=== PATIENT | female | born 1930 | race Caucasian/White ===

== ENCOUNTER 2016-10-29 05:29 | Observation (INO) ==
[2016-10-29] MEDS ORDERED: ONDANSETRON 4 MG/2 ML VIAL IV ONE (05:30)
[2016-10-29] MEDS ORDERED: LACTATED RINGERS 1,000 ML IV ONE (05:30)
--- NOTE | 2016-10-29 05:35 | Emergency Department Note ---
Fall HPI - General Chief Complaint: Fall Stated Complaint: fall Time Seen by Provider: 10/29/16 05:30 Mode of arrival: ambulatory - History of Present Illness HPI Narrative: 85-year-old female is brought in by her daughter after having fallen at home. She is on Coumadin, she did hit her head, she is complaining of a headache but there's been no nausea vomiting, she does have dementia and thus very limited history is available from the patient. It does appear that she has a dry throat. According to the daughter who is also the campground caretaker she has been fairly weak recently. She does take sulfa medications to prevent chronic urinary tract infections, she is also on Coumadin and takes medications for hypothyroidism. There are no advanced directives, the daughter is not sure what to do at this point should she need intervention. Patient is relatively asymptomatic at this point, the nurses did clean her up so was incontinence of stool and urine. According to family there was no seizure-like activity. - Related Data Home Medications Medication Instructions Recorded Confirmed Furosemide [Lasix] 20 mg PO DAILY 10/29/16 10/29/16 Levothyroxine [Synthroid] 125 mcg PO DAILY 10/29/16 10/29/16 Sulfamethoxazole-Tmp Susp 10/29/16 Warfarin [Coumadin] 3 mg PO DAILY 10/29/16 10/29/16 Previous Rx's Medication Instructions Recorded Ciprofloxacin [Cipro] 250 mg PO BID #14 tablet 10/29/16 Allergies Allergy/AdvReac Type Severity Reaction Status Date / Time No Known Drug Allergies Allergy Verified 02/29/16 10:59 Review of Systems Limitations: ROS unobtainable due to patients medical condition Fall PMH - Past Medical History Medical history: Reports: atrial fibrillation, CHF, dementia, thyroid disease, other (recent history of severe pneumonia) Surgical history ED: Reports: non-contributory - Social History smoking status: Never smoker Alcohol use: Reports: None Drug use: Reports: none Physical Exam - General Limitations: altered mental status, physical limitation General appearance: alert, in no apparent distress - Head Head exam: other (3 cm area of bruising and swelling to rt forehead) - Eye Eye exam: Present: normal appearance, PERRL, EOMI - ENT ENT exam: normal exam, normal oropharynx - Neck Neck exam: Present: normal inspection, full ROM - Chest Chest inspection: Present: normal inspection, symmetric chest wall rise - Respiratory Respiratory exam: Present: normal lung sounds bilaterally. Absent: respiratory distress, wheezes - Cardiovascular Cardiovascular exam: Present: regular rate, normal rhythm - Abdominal Exam Abdominal exam: Present: soft, normal bowel sounds. Absent: distention, tenderness, guarding - Extremities Exam Extremities exam: Present: normal inspection, full ROM. Absent: tenderness, pedal edema - Back Exam Back exam: Present: normal inspection, full ROM. Absent: CVA tenderness (R), CVA tenderness (L), vertebral tenderness - Neurological Exam Neurological exam: Present: alert. Absent: motor sensory deficit - Skin Skin exam: Present: warm, dry, intact, rash, other (she has a groin rash and rash and the diaper area.) Course - Reevaluation(s) Reevaluation #1: CT scan of the head and neck showed a lot of atrophy and degenerative changes respectively, no acute findings. She does have a contusion to the right forehead with soft tissue swelling here. It turns out her vitamin B-12 levels are actually low, she does have macrocytosis on her CBC, the urine so far on the dip looks very contaminated. Final impression is #1 fall without acute orthopedic injury #2 contusion right forehead #3 dementia, end-stage number 4, urinary tract infection clinically. Plan is Rocephin, outpatient antibiotics, follow up with primary care in 2 weeks for recheck of the urine, 1 month for follow-up vitamin B12 injection. Vital Signs Temperature 98.2 F 10/29/16 05:30 Pulse Rate 82 10/29/16 05:30 Respiratory Rate 15 10/29/16 05:30 Blood Pressure 121/66 10/29/16 05:30 Pulse Oximetry (%) 98 10/29/16 05:30 Temperature 98.2 F 10/29/16 05:30 Pulse Rate 75 10/29/16 07:25 Respiratory Rate 15 10/29/16 05:30 Blood Pressure 134/73 10/29/16 07:25 Pulse Oximetry (%) 96 10/29/16 07:25 Fall - MDM Narrative Medical decision making narrative: Final diagnosis is urinary tract infection, #2 generalized weaknesssecondary to #1 and end-stage dementia. #3 vitamin B-12 deficiency. - Lab Data Result diagrams: 10/29/16 05:41 10/29/16 05:41 Lab Results 10/29/16 10/29/16 10/29/16 Range/Units 05:41 05:41 05:41 WBC 6.0 (4.5-11.0) K/mcL RBC 3.10 L (4.00-5.20) M/mcL Hgb 12.2 (12.0-15.0) g/dL Hct 36.0 (36.0-48.0) % MCV 116.4 H (80.0-100.0) fL MCH 39.4 H (26.0-34.0) pg MCHC 33.9 (31.0-36.0) g/dL RDW 15.4 H (11.5-14.5) % Plt Count 240 (140-440) K/mcL MPV 7.8 (7.4-10.4) fL Gran % 74.5 (38.0-78.0) % Lymph % (Auto) 10.7 L (15.5-49.0) % [place] % (Auto) 9.4 (1.0-12.0) % Eos % (Auto) 5.1 (0.0-7.0) % Baso % (Auto) 0.3 (0.0-2.0) % Gran # 4.5 (1.8-8.0) K/mcL Lymph # (Auto) 0.6 L (1.5-4.8) K/mcL [place] # (Auto) 0.6 (0.1-0.9) K/mcL Eos # (Auto) 0.3 (0.0-0.7) K/mcL Baso # (Auto) 0 (0.0-0.3) K/mcL PT 14.5 (11.9-14.5) sec INR 1.1 (0.9-1.1) Sodium 137 (133-145) mmol/L Potassium 4.2 (3.3-5.1) mmol/L Chloride 102 (96-108) mmol/L Carbon Dioxide 23 (22-30) mmol/L Anion Gap 12.0 (8-16) BUN 17 (8-23) mg/dl Creatinine 1.3 H (0.6-1.1) mg/dl GFR Calculation 37 Glucose 111 H (70-105) mg/dL Calcium 8.9 (8.6-10.4) mg/dl Total Bilirubin 0.4 (0.0-1.0) mg/dL AST 29 (0-37) U/l ALT 12 (0-40) U/l Alkaline Phosphatase 68 (39-117) U/L Total Protein 6.9 (5.9-8.4) gm/dL Albumin 3.7 (3.2-5.2) gm/dL Globulin 3.2 (2.2-3.7) gm/dL Albumin/Globulin Ratio 1.2 (1.0-2.3) Vitamin B12 (243-894) pg/ml 10/29/16 Range/Units 05:41 WBC (4.5-11.0) K/mcL RBC (4.00-5.20) M/mcL Hgb (12.0-15.0) g/dL Hct (36.0-48.0) % MCV (80.0-100.0) fL MCH (26.0-34.0) pg MCHC (31.0-36.0) g/dL RDW (11.5-14.5) % Plt Count (140-440) K/mcL MPV (7.4-10.4) fL Gran % (38.0-78.0) % Lymph % (Auto) (15.5-49.0) % [place] % (Auto) (1.0-12.0) % Eos % (Auto) (0.0-7.0) % Baso % (Auto) (0.0-2.0) % Gran # (1.8-8.0) K/mcL Lymph # (Auto) (1.5-4.8) K/mcL [place] # (Auto) (0.1-0.9) K/mcL Eos # (Auto) (0.0-0.7) K/mcL Baso # (Auto) (0.0-0.3) K/mcL PT (11.9-14.5) sec INR (0.9-1.1) Sodium (133-145) mmol/L Potassium (3.3-5.1) mmol/L Chloride (96-108) mmol/L Carbon Dioxide (22-30) mmol/L Anion Gap (8-16) BUN (8-23) mg/dl Creatinine (0.6-1.1) mg/dl GFR Calculation Glucose (70-105) mg/dL Calcium (8.6-10.4) mg/dl Total Bilirubin (0.0-1.0) mg/dL AST (0-37) U/l ALT (0-40) U/l Alkaline Phosphatase (39-117) U/L Total Protein (5.9-8.4) gm/dL Albumin (3.2-5.2) gm/dL Globulin (2.2-3.7) gm/dL Albumin/Globulin Ratio (1.0-2.3) Vitamin B12 54.77 L (243-894) pg/ml Disposition Pt seen by DOOR HANGER/PA only: No Clinical Impression: UTI (urinary tract infection) Disposition: Home, Self-Care Condition: Fair Prescriptions: Ciprofloxacin [Cipro] 250 mg PO BID #14 tablet Referrals: Darin Lazo MD [Primary Care Provider] -
[2016-10-29 06:33] LABS: Basophils # (Auto) 0 K/mcL (0.0-0.3); Basophils % (Auto) 0.3 % (0.0-2.0); Eosinophils # (Auto) 0.3 K/mcL (0.0-0.7); Eosinophils % (Auto) 5.1 % (0.0-7.0); Granulocytes % (Auto) 74.5 % (38.0-78.0); Lymphocytes # (Auto) 0.6 K/mcL (1.5-4.8); Lymphocytes % (Auto) 10.7 % (15.5-49.0); Mean Cell Volume 116.4 fL (80.0-100.0); Mean Corpuscular HGB Conc 33.9 g/dL (31.0-36.0); Mean Corpuscular Hemoglobin 39.4 pg (26.0-34.0); Monocytes # (Auto) 0.6 K/mcL (0.1-0.9); Monocytes % (Auto) 9.4 % (1.0-12.0); Platelet Count 240 K/mcL (140-440); Red Cell Distribution Width 15.4 % (11.5-14.5)
[2016-10-29 06:54] LABS: ALT/SGPT 12 U/l (0-40); Albumin 3.7 gm/dL (3.2-5.2); Albumin/Globulin Ratio 1.2 (1.0-2.3); Alkaline Phosphatase 68 U/L (39-117); Blood Urea Nitrogen 17 mg/dl (8-23)
[2016-10-29] MEDS ORDERED: cefTRIAXone 1 GM in DEXTROSE 5% IN WATER 50 ML IV ONE (08:09)
[2016-10-29 08:10] LABS: Vitamin B12 54.77 pg/ml (243-894)
--- NOTE | 2016-10-29 08:14 | Cat Scan Report ---
History: Fell with head injury, increased weakness and history of dementia Findings: The brain was imaged without contrast at 2.5 mm intervals. There is a small to intermediate sized scalp hematoma lateral to the right frontal bone. No skull fracture is present. There is no intracranial hemorrhage or cerebral edema. There is moderate atrophy, predominantly involving the frontal and temporal lobes. An arachnoid cyst is present anteriorly in the left middle cranial fossa. Measures 2.1 x 2.6 cm. Mild white matter ischemic or degenerative changes are seen in the frontal lobes bilaterally. The ventricles are relatively large but proportionate to the atrophy. The atrophy and ventricular dilatation have become worse since 03/16/11. Impression: Scalp hematoma over the right frontal bone Cerebral atrophy with associated ventricular dilatation No acute intracranial lesion Interpreted and Authenticated by: Juan Manuel Hernandez 10/29/16
--- NOTE | 2016-10-29 08:21 | Cat Scan Report ---
History: Fell, neck injury and increasing weakness Findings: The neck was imaged from the skull base through the thoracic inlet. Sagittal and coronal reformats were created. The cervico-occipital junction is normal. There is moderate arthritis at the articulation of the odontoid and anterior ring of C1. The head and neck are tilted to the left. There is no fracture or spondylolisthesis. Moderate disc space narrowing is present at C4-5 and C6-7 with milder narrowing at C2-3, C3-4, C5-6 and C7-T1. There are large spurs along the posterior border of the C6-7 disc space. There is also spurring of the uncinate processes bilaterally at multiple levels resulting in moderate stenosis of the foramina bilaterally at C4-5 and left-sided C6-7. There is no paraspinal hematoma or mass. Impression: No fracture. 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 Johnson was called with results Interpreted and Authenticated by: Juan Manuel Hernandez 10/29/16
--- NOTE | 2016-10-29 08:23 | XRay Report ---
HISTORY: Reason for Exam:FALL FINDINGS: There are linear scars at left costophrenic sulcus. The lungs are otherwise clear and well expanded. The heart size, mediastinum, pedro and pulmonary vasculature are normal. Distal end of the left clavicle is deformed. This may be from an old fracture. No acute fracture is seen. There has been little change since a prior chest CT done on 02/29/16. IMPRESSION: Scarring at the left costophrenic sulcus. The chest is otherwise normal. Interpreted and Authenticated by: Juan Manuel Hernandez 10/29/16
[2016-10-29] MEDS ORDERED: CYANOCOBALAMIN 1,000 MCG/ML VIAL IM ONE (08:46)
[2016-10-29 09:01] LABS: Appearance,Urine CLOUDY; Bacteria,Urine MANY /hpf (0); Bilirubin,Urine NEG (NEG); Color,Urine AMBER; Glucose,Urine (UA) NEGATIVE (NEG); Leukocyte Esterase,Urine 25 /uL (NEG); Mucus,Urine MANY /hpf (0); Nitrate,Urine NEG (NEG); Protein,Urine 100 mg/dL (NEG); Specific Gravity,Urine 1.021 (1.000-1.035); Urine Amorphous Crystals FEW /hpf (0); Urine Blood 0.2 mg/dL (<0.03); Urine RBC 63 /hpf (0-1); Urine Squamous Epithelial Cell 2 /hpf (0-4); Urine Transitional Epi Cells 1 /hpf (0-2); Urine WBC > 182 /hpf (0-4)
[2016-10-29] MEDS: LACTATED RINGERS 1,000 ML IV SCH ×2 (10:19→12:42)
--- NOTE | 2016-10-29 11:24 | Emergency Department Note ---
General Adult HPI - General Chief complaint: Fall Stated complaint: fall Time Seen by Provider: 10/29/16 05:30 Source: patient Mode of arrival: ambulatory Limitations: altered mental status, physical limitation - Related Data Home Medications Medication Instructions Recorded Confirmed Furosemide [Lasix] 20 mg PO DAILY 10/29/16 10/29/16 Levothyroxine [Synthroid] 125 mcg PO DAILY 10/29/16 10/29/16 Sulfamethoxazole-Tmp Susp 10/29/16 Warfarin [Coumadin] 3 mg PO DAILY 10/29/16 10/29/16 Previous Rx's Medication Instructions Recorded Ciprofloxacin [Cipro] 250 mg PO BID #14 tablet 10/29/16 Allergies Allergy/AdvReac Type Severity Reaction Status Date / Time No Known Drug Allergies Allergy Verified 02/29/16 10:59 Past Medical History - Past Medical History Medical history: Reports: atrial fibrillation, CHF, dementia, thyroid disease, other (recent history of severe pneumonia) Surgical history ED: Reports: non-contributory - Social History Alcohol use: Reports: None Drug use: Reports: none Physical Exam - General Limitations: altered mental status, physical limitation General appearance: alert, in no apparent distress Course Vital Signs Temperature 98.2 F 10/29/16 05:30 Pulse Rate 82 10/29/16 05:30 Respiratory Rate 15 10/29/16 05:30 Blood Pressure 121/66 10/29/16 05:30 Pulse Oximetry (%) 98 10/29/16 05:30 Temperature 98.2 F 10/29/16 05:30 Pulse Rate 72 10/29/16 09:32 Respiratory Rate 15 10/29/16 05:30 Blood Pressure 129/69 10/29/16 11:02 Pulse Oximetry (%) 97 10/29/16 09:32 Medical Decision Making - [facility] Narrative Medical decision making narrative: This patient had a urinary tract infection and was too weak to walk. Discussed case with the hospitalist Dr. Hoang and the patient will be admitted to the hospital observation. - Lab Data Lab results reviewed: Yes I reviewed the patient's lab results. Result diagrams: 10/29/16 05:41 10/29/16 05:41 Lab Results 10/29/16 10/29/16 10/29/16 Range/Units 05:41 05:41 05:41 WBC 6.0 (4.5-11.0) K/mcL RBC 3.10 L (4.00-5.20) M/mcL Hgb 12.2 (12.0-15.0) g/dL Hct 36.0 (36.0-48.0) % MCV 116.4 H (80.0-100.0) fL MCH 39.4 H (26.0-34.0) pg MCHC 33.9 (31.0-36.0) g/dL RDW 15.4 H (11.5-14.5) % Plt Count 240 (140-440) K/mcL MPV 7.8 (7.4-10.4) fL Gran % 74.5 (38.0-78.0) % Lymph % (Auto) 10.7 L (15.5-49.0) % [place] % (Auto) 9.4 (1.0-12.0) % Eos % (Auto) 5.1 (0.0-7.0) % Baso % (Auto) 0.3 (0.0-2.0) % Gran # 4.5 (1.8-8.0) K/mcL Lymph # (Auto) 0.6 L (1.5-4.8) K/mcL [place] # (Auto) 0.6 (0.1-0.9) K/mcL Eos # (Auto) 0.3 (0.0-0.7) K/mcL Baso # (Auto) 0 (0.0-0.3) K/mcL PT 14.5 (11.9-14.5) sec INR 1.1 (0.9-1.1) Sodium 137 (133-145) mmol/L Potassium 4.2 (3.3-5.1) mmol/L Chloride 102 (96-108) mmol/L Carbon Dioxide 23 (22-30) mmol/L Anion Gap 12.0 (8-16) BUN 17 (8-23) mg/dl Creatinine 1.3 H (0.6-1.1) mg/dl GFR Calculation 37 Glucose 111 H (70-105) mg/dL Calcium 8.9 (8.6-10.4) mg/dl Total Bilirubin 0.4 (0.0-1.0) mg/dL AST 29 (0-37) U/l ALT 12 (0-40) U/l Alkaline Phosphatase 68 (39-117) U/L Total Protein 6.9 (5.9-8.4) gm/dL Albumin 3.7 (3.2-5.2) gm/dL Globulin 3.2 (2.2-3.7) gm/dL Albumin/Globulin Ratio 1.2 (1.0-2.3) Vitamin B12 (243-894) pg/ml Urine Color Urine Appearance Urine pH (5.0-9.0) Ur Specific [place] (1.000-1.035) Urine Protein (NEG) mg/dL Urine Glucose (UA) (NEG) mg/dL Urine Ketones (NEG) mg/dL Urine Occult Blood (<0.03) mg/dL Urine Nitrate (NEG) Urine Bilirubin (NEG) mg/dL Urine Urobilinogen (NEG) mg/dL Ur Leukocyte Esterase (NEG) /uL Urine RBC (0-1) /hpf Urine WBC (0-4) /hpf Ur Squamous Epith Cells (0-4) /hpf Ur Transition Epith Cell (0-2) /hpf Amorphous Crystals (0) /hpf Urine Bacteria (0) /hpf Urine Mucus (0) /hpf Ur Culture Indicated? 10/29/16 10/29/16 Range/Units 05:41 08:05 WBC (4.5-11.0) K/mcL RBC (4.00-5.20) M/mcL Hgb (12.0-15.0) g/dL Hct (36.0-48.0) % MCV (80.0-100.0) fL MCH (26.0-34.0) pg MCHC (31.0-36.0) g/dL RDW (11.5-14.5) % Plt Count (140-440) K/mcL MPV (7.4-10.4) fL Gran % (38.0-78.0) % Lymph % (Auto) (15.5-49.0) % [place] % (Auto) (1.0-12.0) % Eos % (Auto) (0.0-7.0) % Baso % (Auto) (0.0-2.0) % Gran # (1.8-8.0) K/mcL Lymph # (Auto) (1.5-4.8) K/mcL [place] # (Auto) (0.1-0.9) K/mcL Eos # (Auto) (0.0-0.7) K/mcL Baso # (Auto) (0.0-0.3) K/mcL PT (11.9-14.5) sec INR (0.9-1.1) Sodium (133-145) mmol/L Potassium (3.3-5.1) mmol/L Chloride (96-108) mmol/L Carbon Dioxide (22-30) mmol/L Anion Gap (8-16) BUN (8-23) mg/dl Creatinine (0.6-1.1) mg/dl GFR Calculation Glucose (70-105) mg/dL Calcium (8.6-10.4) mg/dl Total Bilirubin (0.0-1.0) mg/dL AST (0-37) U/l ALT (0-40) U/l Alkaline Phosphatase (39-117) U/L Total Protein (5.9-8.4) gm/dL Albumin (3.2-5.2) gm/dL Globulin (2.2-3.7) gm/dL Albumin/Globulin Ratio (1.0-2.3) Vitamin B12 54.77 L (243-894) pg/ml Urine Color [place] Urine Appearance Cloudy Urine pH 7.0 (5.0-9.0) Ur Specific [place] 1.021 (1.000-1.035) Urine Protein 100 A (NEG) mg/dL Urine Glucose (UA) Negative (NEG) mg/dL Urine Ketones 5/tr A (NEG) mg/dL Urine Occult Blood 0.2 A (<0.03) mg/dL Urine Nitrate Neg (NEG) Urine Bilirubin Neg (NEG) mg/dL Urine Urobilinogen 2.0 A (NEG) mg/dL Ur Leukocyte Esterase 25 A (NEG) /uL Urine RBC 63 H (0-1) /hpf Urine WBC > 182 H (0-4) /hpf Ur Squamous Epith Cells 2 (0-4) /hpf Ur Transition Epith Cell 1 (0-2) /hpf Amorphous Crystals Few A (0) /hpf Urine Bacteria Many A (0) /hpf Urine Mucus Many A (0) /hpf Ur Culture Indicated? Yes - Radiology Data Radiology results reviewed: Yes I reviewed the patient's radiology results. Disposition Pt seen by POWER PLANT OPERATOR/PA only: No Clinical Impression: UTI (urinary tract infection) Disposition: Xfer As Outpt/Obs ([facility]) Condition: Fair Prescriptions: Ciprofloxacin [Cipro] 250 mg PO BID #14 tablet Referrals: Darin Lazo MD [Primary Care Provider] - Time of Disposition: 11:24
[2016-10-29] MEDS ORDERED: MAG HYDROX/AL HYDROX/SIMETH 30 ML ORAL.SUSP PO PRN (11:55)
[2016-10-29] MEDS ORDERED: ACETAMINOPHEN 325 MG TABLET PO PRN (11:55)
[2016-10-29] MEDS ORDERED: MAGNESIUM HYDROXIDE 30 ML ORAL.SUSP PO PRN (11:55)
[2016-10-29] MEDS ORDERED: NALOXONE HCL 0.4 MG/ML VIAL IV PRN (11:55)
[2016-10-29] MEDS ORDERED: IPRATROPIUM/ALBUTEROL 3 ML AMPUL.NEB NEB PRN (11:55)
[2016-10-29] MEDS ORDERED: traZODone HCL 50 MG TABLET PO PRN (11:55)
[2016-10-29] MEDS ORDERED: oxyCODONE HCL 5 MG TABLET PO PRN (11:55)
[2016-10-29] MEDS ORDERED: ONDANSETRON 4 MG/2 ML VIAL IV PRN (11:55)
[2016-10-29] MEDS: 0.9 % SODIUM CHLORIDE 1,000 ML IV SCH (12:41)
--- NOTE | 2016-10-29 13:21 | Internal Med History&Physical ---
Medical - H&P: HPI Patient information: Note initiated : 10/29/16 at 1:07 pm Service Date, if different from initiated Date: [] Patient: Nelda Martinez 85 y/o F admitted on 10/29/16 for fall. Chief Complaint: [] History of present illness: Ms. Martinez is a 85 year old female with history of dementia, atrial fibrillation , transient, COPD, arthritis, history of heart failure, who presented to the ER with history of fall this morning. The patient has been having weakness going on for the last 2 days. The patient this morning, her bed and fell down and there is questionable history of head trauma. The patient has dementia and much of the history was from the chart review. The daughter was not present at bedside. However, she was there in the ED, provide history. In the emergency room, the patient had a head CT, which was reported as negative except contusion on the right temporofemoral region, chest x-ray was negative, the patient's lab was unremarkable, no white count, normal kidney functions. Her urinalysis was abnormal, and she had foul-smelling urine. According to the notes. The patient was given 1 g of Rocephin. Urine cultures were sent and the patient was admitted to the hospital as she was too weak to be discharged back home. ROS unobtainable: due to mental status Medical - H&P: PMH Medical history: Medical History (Last Updated 10/29/16 @ 08:52 by Rory Johnson MD) Asthma exacerbation (Acute) RML pneumonia (Acute) Community acquired bacterial pneumonia (Acute) In addition see HPI Surgical history: TKR Cataract surgery (as per chart review) Family history: reviewed and not pertinent Social history: lives with daughter at home. Medical - H&P: Meds Home Medications Medication Instructions Recorded Confirmed Type Ciprofloxacin [Cipro] 250 mg PO BID #14 tablet 10/29/16 Rx Furosemide [Lasix] 20 mg PO DAILY 10/29/16 10/29/16 History Levothyroxine [Synthroid] 125 mcg PO DAILY 10/29/16 10/29/16 History Sulfamethoxazole-Tmp Susp 10/29/16 History Warfarin [Coumadin] 3 mg PO DAILY 10/29/16 10/29/16 History Allergies Allergy/AdvReac Type Severity Reaction Status Date / Time No Known Drug Allergies Allergy Verified 02/29/16 10:59 Medical - H&P: Exam - Constitutional Vitals: Temp Pulse Resp BP Pulse Ox 98.2 F 72 15 148/102 97 10/29/16 11:38 10/29/16 11:38 10/29/16 11:38 10/29/16 11:38 10/29/16 11:38 Exam: GENERAL: The patient is a well-developed, well-nourished in no apparent distress. Is alert and oriented x1. VITAL SIGNS: Reviewed and as noted elsewhere. HEENT: Head is normocephalic and atraumatic. Extraocular muscles are intact. Pupils are equal, round, and reactive to light. Nares appeared normal. Mouth appears any without lesions. Mucous membranes are dry NECK: Normal to inspection, Supple, No lymphadenopathy or thyromegaly. LUNGS: Air entry equal on both sides, no wheezing, crackles or rhonchi noted. No accessory muscles of respiration HEART: Regular rate and rhythm normal, S1 and S2 heard, no Gallop, S3 or Rub Noted, No Gross murmur heard. ABDOMEN: Soft, nontender, and nondistended. Positive bowel sounds. No hepatosplenomegaly was noted. EXTREMITIES: No cyanosis, clubbing, rash, lesions or edema. NEUROLOGIC: Cranial nerves II through XII are grossly intact. Motor and Sensory System Grossly Intact PSYCHIATRIC: Normal affect, Normal Mood. Appropriate Behavior. SKIN: No ulceration or wounds noted, No jaundice, No rash noted. Medical - H&P: Reslt - Labs CBC & Chem 7: 10/29/16 05:41 10/29/16 05:41 Medical - H&P: A/P - Narrative A/P Narrative: A/P urinary tract infection-. This is likely responsible for patient's weakness and fall, treated with IV fluids and IV Rocephin no evidence of sepsis. Blood pressure is stable. Contusion-conservative management for now. Head CT is negative. Atrial fibrillation-heart rate is well controlled, patient's rate was regular on exam. INR is subtherapeutic at 1.1. According to the last discharge summary , there was some concern with regards to PCP wanting the INR to be around 1.3. I will let pharmacy dose the Coumadin for now. dementia-high risk of falls, fall precaution. vitamin B12 deficiency-noted on the labs. IM vitamin B12 supplement given, will give injections every day for 7 days and then switch to oral. COPD not on any meds when necessary, D.O. nebs for now. DVT prophylaxis-heparin subcutaneous given. INR is subtherapeutic. generalized weakness-due to infection, treat the underlying cause, physical therapy and occupational therapy for now. If the patient does not turn around quickly, may need SNIF placement. Full code Diet, regular, ST eval.
[2016-10-29] MEDS: 0.9 % SODIUM CHLORIDE 10 ML SYRINGE IV SCH ×2 (13:48→20:10)
[2016-10-29] MEDS ORDERED: WARFARIN 5 MG TABLET PO ONE (14:00)
[2016-10-29] MEDS: HEPARIN 5,000 UNIT/ML VIAL SQ SCH (20:10)
[2016-10-30] MEDS: 0.9 % SODIUM CHLORIDE 1,000 ML IV SCH ×2 (00:40→11:57)
[2016-10-30] MEDS: 0.9 % SODIUM CHLORIDE 10 ML SYRINGE IV SCH ×3 (04:43→23:23)
[2016-10-30 06:08] LABS: Basophils # (Auto) 0 K/mcL (0.0-0.3); Basophils % (Auto) 0.4 % (0.0-2.0); Eosinophils # (Auto) 0.4 K/mcL (0.0-0.7); Eosinophils % (Auto) 8.8 % (0.0-7.0); Lymphocytes # (Auto) 0.9 K/mcL (1.5-4.8); Lymphocytes % (Auto) 20.2 % (15.5-49.0); Mean Cell Volume 117.3 fL (80.0-100.0); Mean Corpuscular HGB Conc 33.3 g/dL (31.0-36.0); Mean Corpuscular Hemoglobin 39.1 pg (26.0-34.0); Monocytes # (Auto) 0.6 K/mcL (0.1-0.9); Monocytes % (Auto) 12.6 % (1.0-12.0); Platelet Count 209 K/mcL (140-440); RBC 2.85 M/mcL (4.00-5.20); Red Cell Distribution Width 15.7 % (11.5-14.5)
[2016-10-30 06:39] LABS: ALT/SGPT 11 U/l (0-40); Albumin 3.1 gm/dL (3.2-5.2); Albumin/Globulin Ratio 1.2 (1.0-2.3); Alkaline Phosphatase 60 U/L (39-117); Bilirubin,Direct < 0.2 mg/dL (0.0-0.3); Blood Urea Nitrogen 11 mg/dl (8-23); Gamma Glutamyl Transpeptidase 10 U/L (5-36); Uric Acid 4.6 mg/dL (2.5-8.0)
[2016-10-30] MEDS: LEVOTHYROXINE 125 MCG TABLET PO SCH (08:35)
[2016-10-30] MEDS: FUROSEMIDE 20 MG TABLET PO SCH (08:35)
[2016-10-30] MEDS: MULTIVIT,THER IRON,CA,FA & MIN 1 TABLET PO SCH (08:35)
[2016-10-30] MEDS: CYANOCOBALAMIN 1,000 MCG/ML VIAL IM SCH (08:36)
[2016-10-30] MEDS: HEPARIN 5,000 UNIT/ML VIAL SQ SCH ×2 (08:36→23:05)
[2016-10-30] MEDS: FOLIC ACID 1 MG TABLET PO SCH ×2 (08:37→16:27)
[2016-10-30] MEDS: cefTRIAXone 1 GM in DEXTROSE 5% IN WATER 50 ML IV SCH (08:42)
--- NOTE | 2016-10-30 12:17 | Internal Med Progress Note ---
Medical - PN: Subj Patient information: Note initiated : 10/30/16 at 12:14 pm Service Date, if different from initiated Date: [] Patient: Nelda Martinez 85 y/o F admitted on 10/29/16 for Fall/UTI, Contusion. Chief Complaint: [] Interval history: Ms. Martinez is a 85 year old female with history of dementia, atrial fibrillation , transient, COPD, arthritis, history of heart failure, who presented to the ER with history of fall this morning. The patient has been having weakness going on for the last 2 days. The patient this morning, her bed and fell down and there is questionable history of head trauma. The patient has dementia and much of the history was from the chart review. The daughter was not present at bedside. However, she was there in the ED, provide history. In the emergency room, the patient had a head CT, which was reported as negative except contusion on the right temporofemoral region, chest x-ray was negative, the patient's lab was unremarkable, no white count, normal kidney functions. Her urinalysis was abnormal, and she had foul-smelling urine. According to the notes. The patient was given 1 g of Rocephin. Urine cultures were sent and the patient was admitted to the hospital as she was too weak to be discharged back home. 10/30: patient seen and examined. No acute overnight events. Daughter was at bedside today. DNR form signed by [facility]. The patient's plan is to be discharged to [facility] and then home. The patient denies any acute complaints. However, the patient has dementia and is not very verbal. Labs reviewed, unremarkable. The patient complained about left knee pain and left hip pain. X -rays for same will be ordered given the recent history of fall. Pertinent ROS: says no to all complaints. - Constitutional Vitals: Vital Signs Temp Pulse Resp BP Pulse Ox 97.5 F 74 20 139/75 92 10/30/16 11:51 10/30/16 07:43 10/30/16 11:51 10/30/16 11:51 10/30/16 11:51 Period Temp Pulse Resp BP Sys/Pires Pulse Ox Last 24 Hr 97.5 F-98.8 F 73-76 20-24 95-139/64-77 92-95 Intake and Output 10/29/16 10/30/1610/30/17 21:59 05:59 13:59 Intake Total 1270 / 1270 1200 / 1200 Output Total 2 / 2 2 / 2 Balance -2 / -2 1268 / 1268 1200 / 1200 Weight 192 lb Intake & Output: Intake & Output 10/29/16 10/30/16 10/30/16 21:59 05:59 13:59 Intake Total 1270 / 1270 1200 / 1200 Output Total 2 / 2 2 / 2 Balance -2 / -2 1268 / 1268 1200 / 1200 Weight 192 lb Intake: IV 1000 / 1000 1000 / 1000 Sodium Chloride 0.9% 1, 1000 / 1000 1000 / 1000 000 ml @ 84 mls/hr IV . [id number] DAVID Rx#:[id number] Oral 270 / 270 200 / 200 Output: # of times incontinent of 2 / 2 2 / 2 urine Other: # Voids 1 # Bowel Movements 0 Exam: Constitutional; Afebrile, cooperative, awake, not in distress. Eyes- No icterus, , No periorbital swelling Ears- Ext ear normal, hearing normal to conversation. Neck- Midline trachea, supple Respiratory system: Air Entry equal on both sides, No crackles or wheezing, no rhonchi. CVS- Rate rhythm regular, S1,S2 heard, no gallop, no rub. 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 grabbing at the bedsheet. Medical - PN: Obj Da - Labs CBC & Chem 7: 10/30/16 04:31 10/30/16 04:31 Labs: Abnormal Lab Results 10/30/16 10/30/16 10/30/16 04:31 04:31 04:31 WBC RBC Hgb Hct MCV MCH RDW Boyd % (Auto) Eos % (Auto) Lymph # (Auto) PT 14.9 H Chloride 109 H Carbon Dioxide 21 L Calcium 8.5 L Total Protein 5.7 L Albumin 3.1 L TSH 7.30 H 10/30/16 04:31 WBC 4.4 L RBC 2.85 L Hgb 11.1 L Hct 33.5 L MCV 117.3 H MCH 39.1 H RDW 15.7 H Boyd % (Auto) 12.6 H Eos % (Auto) 8.8 H Lymph # (Auto) 0.9 L PT Chloride Carbon Dioxide Calcium Total Protein Albumin TSH Meds: Medications Acetaminophen (Tylenol) 650 mg PO Q6HP PRN PRN Reason: PAIN/FEVER > 101 Al Hydrox/Mg Hydrox/Simethicone (Maalox) 30 ml PO Q6HP PRN PRN Reason: Dyspepsia Albuterol/Ipratropium (Duoneb) 3 ml NEB Q6HRT PRN PRN Reason: Shortness Of Breath Or Wheezing Cyanocobalamin (Vitamin B12) 1,000 mcg IM DAILY [facility] Stop: 11/05/16 09:01 Last Admin: 10/30/16 08:36 Dose: 1,000 mcg Folic Acid (Folic Acid) 1 mg PO DAILY [facility] Last Admin: 10/30/16 08:37 Dose: 1 mg Furosemide (Lasix) 20 mg PO DAILY [facility] Last Admin: 10/30/16 08:35 Dose: 20 mg Heparin Sodium (Porcine) (Heparin) 5,000 unit SQ Q12 [facility] Last Admin: 10/30/16 08:36 Dose: 5,000 unit Ceftriaxone Sodium 1 gm/ (Dextrose) 50 mls @ 100 mls/hr IV Q24H [facility] Last Admin: 10/30/16 08:42 Dose: 100 mls/hr Sodium Chloride (Sodium Chloride 0.9%) 1,000 mls @ 84 mls/hr IV .[id number] [facility] Last Admin: 10/30/16 11:57 Dose: 84 mls/hr Iron Carb/Multivit/[place]/Folic Acid (Multivitamin W/Minerals) 1 tab PO DAILY [facility] Last Admin: 10/30/16 08:35 Dose: 1 tab Levothyroxine Sodium (Synthroid) 125 mcg PO QAMAC [facility] Last Admin: 10/30/16 08:35 Dose: 125 mcg Magnesium Hydroxide (Milk Of Magnesia) 30 ml PO DAILYP PRN PRN Reason: Constipation Naloxone HCl (Narcan) 0.1 mg IV Q2MIN PRN PRN Reason: Opiate Reversal Ondansetron HCl (Zofran) 4 mg IV Q6HP PRN PRN Reason: Nausea And Vomiting Oxycodone HCl (Roxicodone) 5 mg PO Q4HP PRN PRN Reason: Pain Sodium Chloride (Saline Flush) 10 ml IV Q8 [facility] Last Admin: 10/30/16 04:43 Dose: Not Given Trazodone HCl (Desyrel) 25 mg PO HSP PRN PRN Reason: Insomnia Warfarin Sodium (Coumadin Per Pharmacy) 1 order PO UD DAVID Warfarin Sodium (Coumadin) 5 mg PO ONCE@1400 ONE Stop: 10/30/16 14:01 Medical - PN: A/P - Time Spent With Patient Total time spent is greater than 50% in coordination of care (as documented) at patient's floor/unit and/or counseling patient: - Narrative A/P Narrative: A/P Narrative: A/P urinary tract infection-. This is likely responsible for patient's weakness and fall, treated with IV fluids and IV Rocephin no evidence of sepsis. Blood pressure is stable. Contusion-conservative management for now. Head CT is negative. neurochecks. Hip pain/ knee pain: Get X ray, given h/o fall. Atrial fibrillation-heart rate is well controlled, patient's rate was regular on exam. INR is subtherapeutic at 1.1. According to the last discharge summary , there was some concern with regards to PCP wanting the INR to be around 1.3. I will let pharmacy dose the Coumadin for now. dementia-high risk of falls, fall precaution. vitamin B12 deficiency-noted on the labs. IM vitamin B12 supplement given, will give injections every day while here and can continue at [place], switch to oral at d/c COPD not on any meds when necessary, prn duonebs nebs for now. DVT prophylaxis-heparin subcutaneous given. INR is subtherapeutic. generalized weakness-due to infection, treat the underlying cause, physical therapy and occupational therapy for now. If the patient does not turn around quickly, may need SNIF placement. DNR Diet, regular, ST eval.
--- NOTE | 2016-10-30 13:23 | XRay Report ---
HISTORY: Reason for Exam:pain, s/p fall FINDINGS: No fracture or dislocation are present. There is a pelvic tilt with mild scoliosis in the lumbar spine. The hip joints, SI joints and symphysis pubis appear normal. IMPRESSION: No fracture Interpreted and Authenticated by: Juan Manuel Hernandez 10/30/16
--- NOTE | 2016-10-30 13:25 | XRay Report ---
HISTORY: Reason for Exam:pain, s/p fall FINDINGS: There is a well positioned total knee prosthesis. No fracture is present and there is no reabsorption of bone around the hardware. There is a very small suprapatellar joint effusion. IMPRESSION: No fracture Interpreted and Authenticated by: Juan Manuel Hernandez 10/30/16
[2016-10-30] MEDS ORDERED: WARFARIN 5 MG TABLET PO ONE (14:00)
[2016-10-31] MEDS: 0.9 % SODIUM CHLORIDE 1,000 ML IV SCH ×2 (01:00→11:17)
[2016-10-31 07:02] LABS: Basophils # (Auto) 0 K/mcL (0.0-0.3); Basophils % (Auto) 0.4 % (0.0-2.0); Eosinophils # (Auto) 0.3 K/mcL (0.0-0.7); Eosinophils % (Auto) 7.2 % (0.0-7.0); Granulocytes % (Auto) 56.7 % (38.0-78.0); Lymphocytes # (Auto) 0.9 K/mcL (1.5-4.8); Lymphocytes % (Auto) 19.4 % (15.5-49.0); Mean Cell Volume 116.3 fL (80.0-100.0); Mean Corpuscular HGB Conc 33.5 g/dL (31.0-36.0); Monocytes # (Auto) 0.8 K/mcL (0.1-0.9); Monocytes % (Auto) 16.3 % (1.0-12.0); Platelet Count 214 K/mcL (140-440); RBC 3.09 M/mcL (4.00-5.20); Red Cell Distribution Width 15.2 % (11.5-14.5)
[2016-10-31 07:19] LABS: ALT/SGPT 13 U/l (0-40); Albumin 3.3 gm/dL (3.2-5.2); Albumin/Globulin Ratio 1.1 (1.0-2.3); Alkaline Phosphatase 67 U/L (39-117); Bilirubin,Direct < 0.2 mg/dL (0.0-0.3); Blood Urea Nitrogen 9 mg/dl (8-23); Gamma Glutamyl Transpeptidase 13 U/L (5-36); Uric Acid 4.7 mg/dL (2.5-8.0)
[2016-10-31] MEDS: CYANOCOBALAMIN 1,000 MCG/ML VIAL IM SCH (08:37)
[2016-10-31] MEDS: MULTIVIT,THER IRON,CA,FA & MIN 1 TABLET PO SCH (08:37)
[2016-10-31] MEDS: FOLIC ACID 1 MG TABLET PO SCH (08:37)
[2016-10-31] MEDS: LEVOTHYROXINE 125 MCG TABLET PO SCH (08:37)
[2016-10-31] MEDS: 0.9 % SODIUM CHLORIDE 10 ML SYRINGE IV SCH (08:37)
[2016-10-31] MEDS: HEPARIN 5,000 UNIT/ML VIAL SQ SCH (08:37)
[2016-10-31] MEDS: FUROSEMIDE 20 MG TABLET PO SCH (08:37)
[2016-10-31] MEDS: cefTRIAXone 1 GM in DEXTROSE 5% IN WATER 50 ML IV SCH (09:27)
--- NOTE | 2016-10-31 11:46 | Discharge Summary ---
Medical - DS: Prov Patient information: Note initiated : 10/31/16 at 11:40 am Service Date, if different from initiated Date: [] Patient: Nelda Martinez 85 y/o F admitted on 10/29/16 for Fall/UTI, Contusion. Chief Complaint: [] Date of admission: 10/29/16 11:40 Discharge date: 10/31/16 Primary care physician: Darin Lazo Admitting clinician: Yue Hoang Consults: 10/30/16 16:21 Consult to Physician [CONS] Routine Comment: Consulting Provider: [facility] Reason For Exam: Physician to Consult Attending physician on discharge: [facility] - DS: Meds - Discharge Medications Prescriptions: Ciprofloxacin [Cipro] 250 mg PO BID #14 tablet Active and Home Medications: Discharge medications: Ciprofloxacin 250 mg p.o. twice daily 7 days Lasix 20 mg daily Synthroid 125 mcg daily Warfarin 3 mg daily, or as directed Tylenol 650 mg every 6 hours as needed Maalox 30 mL every 6 hours as needed B12 1000 mcg p.o. daily Folate 1 mg p.o. daily Lasix 20 mg daily Heparin 5000 units subcu every 12 hours until fully ambulatory Multivitamin with minerals daily Prior home Medications: Ciprofloxacin [Cipro] 250 mg PO BID #14 tablet 10/29/16 [Rx Last Taken Unknown] Furosemide [Lasix] 20 mg PO MOWEFR@0900 10/29/16 [History Confirmed 10/29/16 Last Taken Unknown] Levothyroxine [Synthroid] 125 mcg PO QAMAC 10/29/16 [History Confirmed 10/29/16 Last Taken Unknown] Warfarin [Coumadin] 3 mg PO DAILY 10/29/16 [History Confirmed 10/29/16 Last Taken Unknown] Medical - DS: Hosp Hospital course: Mr. Martinez is a 85 year old F Interval history: October 29, 2016: Ms. Martinez is a 85 year old female with history of dementia, atrial fibrillation, transient, COPD, arthritis, history of heart failure, who presented to the ER with history of fall this morning. The patient has been having weakness going on for the last 2 days. The patient this morning, her bed and fell down and there is questionable history of head trauma. The patient has dementia and much of the history was from the chart review. The daughter was not present at bedside. However, she was there in the ED, provide history. In the emergency room, the patient had a head CT, which was reported as negative except contusion on the right temporofemoral region, chest x-ray was negative, the patient's lab was unremarkable, no white count, normal kidney functions. Her urinalysis was abnormal, and she had foul-smelling urine. According to the notes. The patient was given 1 g of Rocephin. Urine cultures were sent and the patient was admitted to the hospital as she was too weak to be discharged back home. 10/30: patient seen and examined. No acute overnight events. Daughter was at bedside today. DNR form signed by [facility]. The patient's plan is to be discharged to [facility] and then home. The patient denies any acute complaints. However, the patient has dementia and is not very verbal. Labs reviewed, unremarkable. The patient complained about left knee pain and left hip pain. X -rays for same will be ordered given the recent history of fall. October 31, 2016: Hospital course: This patient has dementia, normally lives at home with her daughter. She became suddenly weak a few days prior to admission, and then had a fall. She was diagnosed with a urinary tract infection. She did bang her head on her fall , which caused a slight contusion. She was too weak to return home, and was admitted to observation. She did undergo evaluation with physical and occupational therapies, and needs some strengthening prior to returning home. -She also complained of knee and hip pain yesterday, and x-rays were done of the left knee and left hip, and did not show any significant problems. Next Today, the patient says she is feeling okay. Her history appears unreliable, due to memory loss. She denies any significant pain, fever or chills. She says she has an occasional cough. She denies chest pain or shortness of breath. She did report some mild lower abdominal discomfort, but her daughter, who is in the room with her, believes she was just reporting being hungry. She denies dysuria. On exam, she is a well-developed well-nourished elderly female in no acute distress. Neck shows no obvious JVD or lymphadenopathy. Cardiac exam shows regular rate and rhythm Lungs are clear to auscultation. Abdomen appears soft and nontender. Bowel sounds are active. Extremities: Show some slight puffy edema just at the ankles. Neurologic exam: The patient is alert and cooperative. She shows no gross motor deficits. She does appear forgetful. A/P Narrative: #1. Urinary tract infection-. This is likely responsible for patient's weakness and fall, treated with IV fluids and IV Rocephin no evidence of sepsis. Blood pressure is stable. -Resume oral ciprofloxacin, pending urine culture results. #2. Contusion-conservative management for now. Head CT is negative. neurochecks have been improving.. #3. Hip pain/ knee pain: X-rays looks fine. Continue physical therapy. #4. Atrial fibrillation-heart rate is well controlled, patient's rate was regular on exam. INR is subtherapeutic at 1.1. According to the last discharge summary, there was some concern with regards to PCP wanting the INR to be around 1.3. INR continues low today at 1.2. She is obviously a fall risk. Consider inching her INR up to about 1.6, or consider just changing over to aspirin alone. #5. dementia-high risk of falls, fall precaution. #6. Vitamin B12 deficiency-noted on the labs. IM vitamin B12 supplement given , will give injections every day while here and can continue at [place], switch to oral at d/c #7. COPD not on any meds when necessary, prn duonebs nebs for now. #8. DVT prophylaxis-heparin subcutaneous given. INR is subtherapeutic. #9. Generalized weakness-due to infection, treat the underlying cause, physical therapy and occupational therapy for now. Her daughter would like to have her back home as soon as possible, so they can get back to their normal routine. Nursing had some concerns about skin breakdown in the perineal area, and they felt perhaps the daughter was not changing the patient enough at night, regarding her incontinence. However, the patient is quite resistant to having her depends changed, and we expect this is playing a role. Consider coating the perineal area with Desitin or other barrier ointment, every evening. #10. DNR #11. Hypothyroidism. -TSH was mildly elevated. It might be worthwhile increasing her Synthroid just a bit. Diet, regular, ST eval. Approximately 35 minutes was spent today, reviewing the patient's test results, interviewing and examining her, reviewing plan of care with staff, and writing orders Discharge diagnosis: Weakness, status post fall. Acute urinary tract infection. Dementia. - Time Spent with Patient Total time spent providing and/or coordinating discharge services: Greater than 30 minutes Medical - DS: Exam - Constitutional Vitals: Vital Signs Temp Pulse Resp BP BP Pulse Ox 10/31/16 11:33 97.9 F 65 18 131/87 96 10/31/16 08:00 20 97 10/31/16 06:57 97.4 F 20 158/78 97 10/31/16 03:55 97.9 F 66 18 148/76 96 10/31/16 00:00 97.7 F 74 22 173/82 93 10/30/16 20:00 97.2 F 83 20 168/75 94 10/30/16 15:38 97.9 F 20 134/60 91 10/30/16 12:00 97.5 F 20 139/75 92 10/30/16 11:51 97.5 F 20 139/75 92 Intake and Output 10/30/16 10/31/16 10/31/16 21:59 05:59 13:59 Intake Total 150 / 150 1240 / 1240 1384 / 1384 Output Total 2 / 2 2 / 2 / Balance 148 / 148 1238 / 1238 1383 / 1383 Intake: IV 1000 / 1000 864 / 864 Sodium Chloride 0.9% 1, 1000 / 1000 864 / 864 000 ml @ 84 mls/hr IV . [id number] [facility] Rx#:[id number] Oral 150 / 150 240 / 240 520 / 520 Output: # of times incontinent of 2 / 2 2 / 2 urine Other: Meal Lunch Percent of Meal Consumed 75% Weight 189 lb 8 oz Medical - DS: Data Labs on day of discharge: Labs from last 24 hours 10/31/16 10/31/16 10/31/16 05:33 05:33 05:33 WBC 4.7 RBC 3.09 L Hgb 12.0 Hct 35.9 L MCV 116.3 H MCH 39.0 H MCHC 33.5 RDW 15.2 H Plt Count 214 MPV 7.7 Gran % 56.7 Lymph % (Auto) 19.4 Alexander % (Auto) 16.3 H Eos % (Auto) 7.2 H Baso % (Auto) 0.4 Gran # 2.7 Lymph # (Auto) 0.9 L Alexander # (Auto) 0.8 Eos # (Auto) 0.3 Baso # (Auto) 0 PT 15.0 H INR 1.2 H Sodium 139 Potassium 3.6 Chloride 103 Carbon Dioxide 25 Anion Gap 11.0 BUN 9 Creatinine 0.9 GFR Calculation 58 Glucose 88 Uric Acid 4.7 Calcium 8.6 Phosphorus 3.1 Magnesium 2.0 Total Bilirubin 0.3 Direct Bilirubin < 0.2 GGT 13 AST 27 ALT 13 Alkaline Phosphatase 67 Lactate Dehydrogenase 203 Total Protein 6.4 Albumin 3.3 Globulin 3.1 Albumin/Globulin Ratio 1.1 Triglycerides 109 October 30: - TSH is elevated at 7.3, free T4 is normal at 1.05 -Left knee x-ray shows no fracture. There is a well-positioned total knee prosthesis. There is a small suprapatellar joint effusion. -Hip and pelvis x-ray: Shows no fracture. There is mild scoliosis of the lumbar spine. October 29: - Urinalysis showed 100 mg protein, 5 ketones, 2 urobilinogen, 25 leukocyte esterase, 63 red blood cells, greater than 180 white blood cells, many bacteria. Culture pending. -Head CT: Shows a right scalp hematoma over the right frontal bone. Cerebral atrophy and associated ventricular dilation are noted. No acute lesions. Small arachnoid cyst. Mild white matter ischemic changes. -CT of the cervical spine showed no fractures. 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 -Chest x-ray shows scarring at the left costophrenic sulcus, and otherwise normal. Medical - DS: A/P - Patient/Caregiver Discharge Instructions Activity: as per physical therapy Diet: Regular Diet Prescriptions: Ciprofloxacin [Cipro] 250 mg PO BID #14 tablet Other Amb Orders: Aspiration Precautions Location: Determined By Patient Fall Risk Location: Determined By Patient OT Discharge Order Location: Determined By Patient Physical Therapy at Discharge - General Location: Determined By Patient - Follow up Plan Follow up with: Darin Lazo MD [Primary Care Provider] - Disposition: Xfer SNF Prognosis: Fair Rehab Potential: Fair I certify that the patient requires SNF services: Yes Overall status at discharge: patient is progressing back to baseline
[2016-10-31] MEDS ORDERED: WARFARIN 5 MG TABLET PO SCH (14:00)
== END 2016-10-31 12:41 ==
LOC: ED 05:29 → MEDSUR 05:29 → SUATTDRO 11:40
PROVIDERS: ADMIT Internal Medicine; ATTEND Internal Medicine

== ENCOUNTER 2017-03-23 07:40 | Observation (INO) ==
--- NOTE | 2017-03-23 08:04 | Emergency Department Note ---
Fall HPI - General Chief Complaint: Fall Stated Complaint: Fall this morning. Neck pain Time Seen by Provider: 03/23/17 07:58 Source: patient, EMS Mode of arrival: EMS - History of Present Illness HPI Narrative: This patient has a history of dementia and fell in the bathroom this morning. The scan are pending and so wall. Not clear if she lost consciousness and she is not on a blood thinner other than aspirin. She did complain of family of some neck pain and is in a c-collar. She had a recent right humerus fracture. - Related Data Home Medications Medication Instructions Recorded Confirmed Furosemide [Lasix] 20 mg PO MOWEFR@0900 10/29/16 12/21/16 Levothyroxine [Synthroid] 125 mcg PO QAMAC 10/29/16 12/21/16 Aspirin [Lite Coat Aspirin] 325 mg PO DAILY 12/21/16 12/21/16 Previous Rx's Medication Instructions Recorded Acetaminophen [Tylenol] 650 mg PO Q6HP PRN tablet 10/31/16 Cyanocobalamin [Vitamin B12] 1,000 mcg IM DAILY vial 10/31/16 Folic Acid 1 mg PO DAILY tablet 10/31/16 Ipratropium/Albuterol [Duoneb] 3 ml NEB Q6HRT PRN 10/31/16 Magnesium Hydroxide [Milk of 30 ml PO DAILYP PRN 10/31/16 Magnesia] Multivit,Ther Iron,Ca,FA & Min 1 tab PO DAILY tablet 10/31/16 [Multivitamin W/Minerals] HYDROcodone/APAP 5/325MG [Cost 1 tab PO Q4HP PRN #20 tablet 12/21/16 5/325Mg] Levofloxacin 250 mg PO DAILY #7 tablet 12/29/16 traMADol [Ultram] 50 mg PO Q6HP PRN #15 tab 01/09/17 Allergies Allergy/AdvReac Type Severity Reaction Status Date / Time No Known Drug Allergies Allergy Verified 02/19/17 11:33 Review of Systems Limitations: ROS unobtainable due to patients medical condition Fall PMH - Past Medical History Medical history: Reports: atrial fibrillation, CHF, dementia, thyroid disease, other (recent history of severe pneumonia) Psychiatric history: Reports: no psych history 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 Absent: distention, tenderness Neurological: Present: alert Skin: Present: warm, dry, intact Course Vital Signs Temperature 96.8 F L 03/23/17 07:42 Pulse Rate 71 03/23/17 07:42 Respiratory Rate 16 03/23/17 07:42 Blood Pressure 149/76 03/23/17 07:42 Pulse Oximetry (%) 96 03/23/17 07:42 Temperature 96.8 F L 03/23/17 07:42 Pulse Rate 68 03/23/17 08:27 Respiratory Rate 16 03/23/17 07:42 Blood Pressure 156/72 03/23/17 08:17 Pulse Oximetry (%) 96 03/23/17 08:27 Fall - [facility] Narrative Medical decision making narrative: CT of head was negative. Awaiting the reading of the cervical spine CT. Final disposition per Dr. Johnson. Disposition Pt seen by HUMAN RESOURCES CONSULTANT/PA only: No Disposition: Still a Patient Condition: Fair Referrals: Darin Lazo MD [Primary Care Provider] -
--- NOTE | 2017-03-23 09:09 | Cat Scan Report ---
CLINICAL INFORMATION: Trauma COMPARISON: 10/29/2016 TECHNIQUE: 2.5 mm helical slices were obtained in the skull base to vertex. Following reconstruction, axial reformatted images were reviewed at bone and parenchymal windows. The exam was performed using radiation dose optimization techniques including, but not limited to, automated exposure control, adjustment of the mA and/or kV according to patient size and use of iterative reconstruction technique. FINDINGS: A 2.5 cm benign arachnoid cyst in the left middle cranial fossa is unchanged. The ventricles, sulci, fissures and cisterns are moderately enlarged compatible with moderate atrophy. There is asymmetrical atrophy of the temporal lobe which suggests the possibility of Alzheimer's disease. No intracerebral hemorrhage, mass effect or edema or other acute posttraumatic change. Mild chronic ischemic changes featuring white matter seen - as before. Bone windows show no fracture or other osseous normality IMPRESSION: Moderate atrophy with asymmetric atrophy of the temporal lobes suggesting the possibility of Alzheimer's disease - please correlate with other clinical history 2.5 arachnoid cyst left middle cranial fossa - stable No intracerebral hemorrhage or posttraumatic change. Interpreted and Authenticated by: Silverio Tavera 03/23/17
--- NOTE | 2017-03-23 10:40 | Emergency Department Note ---
Fall HPI - General Chief Complaint: Fall Stated Complaint: Fall this morning. Neck pain Time Seen by Provider: 03/23/17 07:58 Source: patient, EMS Mode of arrival: EMS - Related Data Home Medications Medication Instructions Recorded Confirmed Furosemide [Lasix] 20 mg PO MOWEFR@0900 10/29/16 12/21/16 Levothyroxine [Synthroid] 125 mcg PO QAMAC 10/29/16 12/21/16 Aspirin [Lite Coat Aspirin] 325 mg PO DAILY 12/21/16 12/21/16 Previous Rx's Medication Instructions Recorded Acetaminophen [Tylenol] 650 mg PO Q6HP PRN tablet 10/31/16 Cyanocobalamin [Vitamin B12] 1,000 mcg IM DAILY vial 10/31/16 Folic Acid 1 mg PO DAILY tablet 10/31/16 Ipratropium/Albuterol [Duoneb] 3 ml NEB Q6HRT PRN 10/31/16 Magnesium Hydroxide [Milk of 30 ml PO DAILYP PRN 10/31/16 Magnesia] Multivit,Ther Iron,Ca,FA & Min 1 tab PO DAILY tablet 10/31/16 [Multivitamin W/Minerals] HYDROcodone/APAP 5/325MG [[place] 1 tab PO Q4HP PRN #20 tablet 12/21/16 5/325Mg] Levofloxacin 250 mg PO DAILY #7 tablet 12/29/16 traMADol [Ultram] 50 mg PO Q6HP PRN #15 tab 01/09/17 Cephalexin [Keflex] 500 mg PO BID #20 cap 03/23/17 Allergies Allergy/AdvReac Type Severity Reaction Status Date / Time No Known Drug Allergies Allergy Verified 02/19/17 11:33 Fall PMH - Past Medical History Medical history: Reports: atrial fibrillation, CHF, dementia, thyroid disease, other (recent history of severe pneumonia) Psychiatric history: Reports: no psych history 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 jones for initial documentation. At this point visiting with the daughter she is a fall risk, she fell today from a standing position, on her back hitting her head falling on the left side, she does have a history of left humerus fracture which is inoperable secondary to her dementia. Daughter is requesting placement which I told him we are unable to do out of the emergency department. We will pursue screening labs to see if there is any medical reason for admission, she is mostly bedridden at home. Daughter has some health issues and feels she is unable to take care of her mother.CT scan of the head and neck do not show any acute conditions, thus the collar was taken off. We will x-ray the left arm to see if there is any new displacement Vital Signs Temperature 96.8 F L 03/23/17 07:42 Pulse Rate 71 03/23/17 07:42 Respiratory Rate 16 03/23/17 07:42 Blood Pressure 149/76 03/23/17 07:42 Pulse Oximetry (%) 96 03/23/17 07:42 Temperature 96.8 F L 03/23/17 07:42 Pulse Rate 73 03/23/17 11:47 Respiratory Rate 16 03/23/17 07:55 Blood Pressure 159/82 03/23/17 11:47 Pulse Oximetry (%) 98 03/23/17 11:47 Fall - MDM Narrative Medical decision making narrative: She does have a urinary tract infection, however her white count is normal, no signs of sepsis, CT scans were negative. She does not qualify for hospital admission at this point.we did have the social services specialist visit with family regarding options for placement. Especially since this is more of a care issue. - Lab Data Result diagrams: 03/23/17 10:33 03/23/17 10:33 Lab Results 03/23/17 03/23/17 03/23/17 Range/Units 10:33 10:33 11:37 WBC 7.9 (4.5-11.0) K/mcL RBC 4.04 (4.00-5.20) M/mcL Hgb 12.2 (12.0-15.0) g/dL Hct 36.7 (36.0-48.0) % MCV 90.8 (80.0-100.0) fL MCH 30.3 (26.0-34.0) pg MCHC 33.4 (31.0-36.0) g/dL RDW 15.2 H (11.5-14.5) % Plt Count 263 (140-440) K/mcL MPV 8.3 (7.4-10.4) fL Gran % 73.4 (38.0-78.0) % Lymph % (Auto) 14.4 L (15.5-49.0) % [place] % (Auto) 8.1 (1.0-12.0) % Eos % (Auto) 3.7 (0.0-7.0) % Baso % (Auto) 0.4 (0.0-2.0) % Gran # 5.8 (1.8-8.0) K/mcL Lymph # (Auto) 1.1 L (1.5-4.8) K/mcL [place] # (Auto) 0.6 (0.1-0.9) K/mcL Eos # (Auto) 0.3 (0.0-0.7) K/mcL Baso # (Auto) 0 (0.0-0.3) K/mcL Sodium 142 (133-145) mmol/L Potassium 3.8 (3.3-5.1) mmol/L Chloride 105 (96-108) mmol/L Carbon Dioxide 24 (22-30) mmol/L Anion Gap 13.0 (8-16) BUN 13 (8-23) mg/dl Creatinine 0.9 (0.6-1.1) mg/dl GFR Calculation 58 Glucose 94 (70-105) mg/dL Calcium 8.9 (8.6-10.4) mg/dl Total Bilirubin 0.3 (0.0-1.0) mg/dL AST 13 (0-37) U/l ALT 9 (0-40) U/l Alkaline Phosphatase 113 (39-117) U/L Total Protein 6.4 (5.9-8.4) gm/dL Albumin 3.5 (3.2-5.2) gm/dL Globulin 2.9 (2.2-3.7) gm/dL Albumin/Globulin Ratio 1.2 (1.0-2.3) Urine Color Yellow Urine Appearance Hazy Urine pH 6.0 (5.0-9.0) Ur Specific [place] 1.010 (1.000-1.035) Urine Protein Neg (NEG) mg/dL Urine Glucose (UA) Negative (NEG) mg/dL Urine Ketones Neg (NEG) mg/dL Urine Occult Blood 0.2 A (<0.03) mg/dL Urine Nitrate Neg (NEG) Urine Bilirubin Neg (NEG) mg/dL Urine Urobilinogen Neg (NEG) mg/dL Ur Leukocyte Esterase 500 A (NEG) /uL Urine RBC 5 H (0-1) /hpf Urine WBC 32 H (0-4) /hpf Ur Squamous Epith Cells < 1 (0-4) /hpf Urine Bacteria Mod A (0) /hpf Urine Mucus Few (0) /hpf Ur Culture Indicated? Yes Disposition Pt seen by THREAD SPINNER/PA only: No Clinical Impression: Urinary tract infection Disposition: Home, Self-Care Condition: Fair Instructions: Urinary Tract Infection in Women (ED) Prescriptions: Cephalexin [Keflex] 500 mg PO BID #20 cap Referrals: Darin Lazo MD [Primary Care Provider] -
[2017-03-23 10:59] LABS: Basophils # (Auto) 0 K/mcL (0.0-0.3); Basophils % (Auto) 0.4 % (0.0-2.0); Eosinophils # (Auto) 0.3 K/mcL (0.0-0.7); Eosinophils % (Auto) 3.7 % (0.0-7.0); Granulocytes % (Auto) 73.4 % (38.0-78.0); Lymphocytes # (Auto) 1.1 K/mcL (1.5-4.8); Lymphocytes % (Auto) 14.4 % (15.5-49.0); Mean Cell Volume 90.8 fL (80.0-100.0); Mean Corpuscular HGB Conc 33.4 g/dL (31.0-36.0); Mean Corpuscular Hemoglobin 30.3 pg (26.0-34.0); Monocytes # (Auto) 0.6 K/mcL (0.1-0.9); Monocytes % (Auto) 8.1 % (1.0-12.0); Platelet Count 263 K/mcL (140-440); RBC 4.04 M/mcL (4.00-5.20); Red Cell Distribution Width 15.2 % (11.5-14.5)
--- NOTE | 2017-03-23 11:13 | Cat Scan Report ---
CLINICAL INFORMATION: Trauma COMPARISON: None. TECHNIQUE: 2.5 mm helical slices were obtained from the skull base through the superior T2 end plate. Following reconstruction, 2.5 mm sagittal, coronal and axial reformations , with and without disc space angling, were processed. The exam was reviewed at bone and soft tissue windows. The exam was performed using radiation dose optimization techniques including, but not limited to, automated exposure control, adjustment of the mA and/or kV according to patient size and use of iterative reconstruction technique. FINDINGS: Sagittal and coronal reformatted images show the cervical spine to be anatomically aligned. There is no fracture or other osseous abnormality. The cervical cord is normal in contour and caliber without focal lesion. The soft tissues are normal. At C2-3, there is a mild broad disc spur complex left-sided asymmetry resulting in mild left lateral recess narrowing. At C3-4, mild broad disc spur complex results in mild thecal sac impingement, moderate right and mild left IV foraminal narrowing. At C4-5, mild broad disc spur complex results in moderate right and mild left lateral recess narrowing and mild central canal narrowing. At C5-6, a moderate broad disc spur, with right-sided asymmetry results in moderate right lateral recess and mild central canal narrowing At C6-7, there is a large left paracentral disc protrusion changing the left thecal sac resulting in mild left lateral recess narrowing C7-T1 disc levels normal IMPRESSION: No fracture, subluxation or other acute posttraumatic change. Multilevel degenerative change - as described Interpreted and Authenticated by: Silverio Tavera 03/23/17
[2017-03-23 11:20] LABS: ALT/SGPT 9 U/l (0-40); Albumin 3.5 gm/dL (3.2-5.2); Albumin/Globulin Ratio 1.2 (1.0-2.3); Alkaline Phosphatase 113 U/L (39-117); Blood Urea Nitrogen 13 mg/dl (8-23)
[2017-03-23 12:11] LABS: Appearance,Urine HAZY; Bacteria,Urine MOD /hpf (0); Bilirubin,Urine NEG (NEG); Color,Urine YELLOW; Glucose,Urine (UA) NEGATIVE (NEG); Leukocyte Esterase,Urine 500 /uL (NEG); Mucus,Urine FEW /hpf (0); Nitrate,Urine NEG (NEG); Protein,Urine NEG (NEG); Urine Blood 0.2 mg/dL (<0.03); Urine RBC 5 /hpf (0-1); Urine Squamous Epithelial Cell < 1 /hpf (0-4); Urine WBC 32 /hpf (0-4); Urobilinogen,Urine NEG (NEG)
--- NOTE | 2017-03-23 12:27 | XRay Report ---
CLINICAL INFORMATION: Trauma COMPARISON: 04/21/2016 FINDINGS: Moderately comminuted butterfly type fracture of the mid humeral diaphysis with displacement of the distal fragment one shaft width laterally and posteriorly with unchanged alignment. A small amount of bridging callus. The apex of fracture angulation is approximately 30 degrees medially. Joint spaces are normal IMPRESSION: Mildly comminuted, moderately displaced and angulated fracture of the mid humeral diaphysis shows unchanged alignment from the x-ray month ago. Small amount of new bridging callus is appreciated. Interpreted and Authenticated by: Silverio Tavera 03/23/17
[2017-03-23] MEDS ORDERED: CEPHALEXIN 500 MG CAPSULE PO ONE (12:38)
[2017-03-23] MEDS ORDERED: cefTRIAXone 1 GM VIAL IV ONE (12:48)
[2017-03-23] MEDS ORDERED: ONDANSETRON 4 MG/2 ML VIAL IV PRN (13:16)
[2017-03-23] MEDS ORDERED: ACETAMINOPHEN 325 MG TABLET PO PRN (13:16)
[2017-03-23] MEDS ORDERED: LACTATED RINGERS 1,000 ML IV SCH (13:30)
[2017-03-23] MEDS ORDERED: DOCUSATE SODIUM 100 MG CAPSULE PO PRN (14:33)
[2017-03-23] MEDS ORDERED: NALOXONE HCL 0.4 MG/ML VIAL IV PRN (14:33)
[2017-03-23] MEDS ORDERED: MAGNESIUM HYDROXIDE 30 ML ORAL.SUSP PO PRN (14:33)
[2017-03-23] MEDS ORDERED: CALCIUM CARBONATE 500 MG TAB.CHEW CHEWED PRN (14:33)
[2017-03-23] MEDS ORDERED: cefTRIAXone 1 GM in DEXTROSE 5% IN WATER 50 ML IV SCH (14:45)
--- NOTE | 2017-03-23 14:56 | Internal Med History&Physical ---
Medical - H&P: HPI Patient information: Note initiated : 03/23/17 at 2:44 pm Service Date, if different from initiated Date: [] Patient: Nelda Martinez 86 y/o F admitted on 03/23/17 for Fall this morning. Neck pain. Chief Complaint: [] History of present illness: Ms. Martinez is a 86 year old F Ms. Martinez is a 85 year old female with history of dementia, atrial fibrillation , transient, COPD, arthritis, history of heart failure, who presented to the ER with history of fall this morning. Per the ER MD, the patient was standing up this morning and just fell backwards, striking her head. At the time that I am seeing her, there is no family present. The patient is really too confused to give a history. She thinks her head might be sore, but is unsure of that. She appears to deny recent fever or chills, dizziness, earaches or sore throat or cough, chest pain or palpitations, shortness of breath, GI or symptoms, but appears to have significant dementia. ER evaluation: Head CT and neck CT showed no acute findings. Urinalysis is suggestive of UTI. The patient is weak and confused, and the family does not feel that they can handle her at home in this state. She is now admitted to observation for further monitoring, workup, treatment. Medical History Dementia History of DVT History of chronic atrial fibrillation, paroxysmal Asthma versus COPD Arthritis CHF Asthma exacerbation (Acute) RML pneumonia (Acute) Community acquired bacterial pneumonia (Acute) Hypothyroidism Allergies: No known drug allergies Medications: Unable to verify currently. These appear to include: Tylenol 650 mg every 6 hours as needed Aspirin 325 mg's daily B12 1000 mcg p.o. daily Folate 1 mg daily Lasix 20 mg Thursday [place] 5/325 one every 4 hours as needed Duo nebs every 6 hours as needed Levothyroxine 125 mcg every morning Milk of magnesia 30 mL daily as needed Multivitamin 1 daily Tramadol 50 mg every 6 hours as needed Surgical history: TKR Cataract surgery Family history: Mother had coronary disease. Social history: The patient resides in [place] along with her daughter, Chelsea. She denies a history of significant alcohol use. She quit smoking roughly 11 years ago. No history of drug use. Sees primary care physician Darin Lazo MD Medical - H&P: Meds Home Medications Medication Instructions Recorded Confirmed Type Furosemide [Lasix] 20 mg PO MOWEFR@0900 10/29/16 12/21/16 History Levothyroxine [Synthroid] 125 mcg PO QAMAC 10/29/16 12/21/16 History Acetaminophen [Tylenol] 650 mg PO Q6HP PRN tablet 10/31/16 12/21/16 Rx Cyanocobalamin [Vitamin B12] 1,000 mcg IM DAILY vial 10/31/16 12/21/16 Rx Folic Acid 1 mg PO DAILY tablet 10/31/16 12/21/16 Rx Ipratropium/Albuterol [Duoneb] 3 ml NEB Q6HRT PRN 10/31/16 12/21/16 Rx Magnesium Hydroxide [Milk of 30 ml PO DAILYP PRN 10/31/16 12/21/16 Rx Magnesia] Multivit,Ther Iron,Ca,FA & Min 1 tab PO DAILY tablet 10/31/16 12/21/16 Rx [Multivitamin W/Minerals] Aspirin [Lite Coat Aspirin] 325 mg PO DAILY 12/21/16 12/21/16 History HYDROcodone/APAP 5/325MG [[place] 1 tab PO Q4HP PRN #20 tablet 12/21/16 Rx 5/325Mg] Levofloxacin 250 mg PO DAILY #7 tablet 12/29/16 Rx traMADol [Ultram] 50 mg PO Q6HP PRN #15 tab 01/09/17 Rx Cephalexin [Keflex] 500 mg PO BID #20 cap 03/23/17 Rx Allergies Allergy/AdvReac Type Severity Reaction Status Date / Time No Known Drug Allergies Allergy Verified 02/19/17 11:33 Medical - H&P: Exam - Constitutional Vitals: Temp Pulse Resp BP Pulse Ox 96.8 F L 76 16 174/84 90 03/23/17 07:42 03/23/17 13:15 03/23/17 07:55 03/23/17 12:32 03/23/17 13:15 On exam, she is not in any acute distress. She is significantly confused. Her speech is quite thick and difficult to understand at times. Head: Is normocephalic. I do not see obvious signs of head trauma, and the patient is unable to say where her head hurts. Ears: TMs and canals are clear. Eyes: Pupils are about 2 mm, sluggishly reactive, EOMI, anicteric. Pharynx: She has evidence of postnasal drip. Mucosa is quite dry. She has dentures in place. Neck: Appears supple, without obvious stiffness or pain. There is no obvious lymphadenopathy, JVD, thyromegaly, bruits. Cardiac exam: Shows regular rate and rhythm with normal S1 and S2. No murmurs, rubs, gallops are noted. Lungs: Have a few scattered crackles, but are otherwise clear, without rhonchi or wheezes. Abdomen: Is soft and nontender with no obvious masses. Bowel sounds are active. Extremities: Left upper arm has a brace snugly in place. There is significant swelling distal to this in her lower arm. She has significant pain of the arm is moved. Lower extremities show no significant edema, cyanosis, clubbing. Neurologic exam: The patient is awake and alert. She attempts to follow some commands, but cannot follow most. She is unable to really cooperate with an EOM exam, or strength testing in her extremities, or any sort of cerebellar testing. She is moving all extremities equally. Medical - H&P: Reslt - Labs CBC & Chem 7: 03/23/17 10:33 03/23/17 10:33 Labs: Short CBC 03/23/17 Range/Units 10:33 WBC 7.9 (4.5-11.0) K/mcL Hgb 12.2 (12.0-15.0) g/dL Hct 36.7 (36.0-48.0) % Plt Count 263 (140-440) K/mcL BMP 03/23/17 10:33 Sodium 142 Potassium 3.8 Chloride 105 Carbon Dioxide 24 BUN 13 Creatinine 0.9 Glucose 94 Calcium 8.9 Liver Function 03/23/17 Range/Units 10:33 Total Bilirubin 0.3 (0.0-1.0) mg/dL AST 13 (0-37) U/l ALT 9 (0-40) U/l Alkaline Phosphatase 113 (39-117) U/L Albumin 3.5 (3.2-5.2) gm/dL Urine 03/23/17 Range/Units 11:37 Urine Color Yellow Urine Appearance Hazy Urine pH 6.0 (5.0-9.0) Ur Specific [place] 1.010 (1.000-1.035) Urine Protein Neg (NEG) mg/dL Urine Glucose (UA) Negative (NEG) mg/dL March 23: CBC: White blood cell count 7900, hemoglobin 12, hematocrit 36, platelets 263, 000. Chemistry panel: Is essentially normal. Urinalysis: Shows 500 leukocyte esterase, 5 red blood cells, 32 white blood cells, moderate bacteria. Left arm x-ray: IMPRESSION: Mildly comminuted, moderately displaced and angulated fracture of the mid humeral diaphysis shows unchanged alignment from the x-ray month ago. Small amount of new bridging callus is appreciated. Dry head CT: IMPRESSION: Moderate atrophy with asymmetric atrophy of the temporal lobes suggesting the possibility of Alzheimer's disease - please correlate with other clinical history. 2.5 arachnoid cyst left middle cranial fossa - stable. No intracerebral hemorrhage or posttraumatic change. CT cervical spine: IMPRESSION: No fracture, subluxation or other acute posttraumatic change. Multilevel degenerative change - as described Medical - H&P: A/P (1) Altered mental status Current visit: Yes Status: Acute (2) Fall from ground level Current visit: Yes Status: Acute (3) Head injury due to trauma Current visit: Yes Status: Acute (4) History of atrial fibrillation Current visit: Yes Status: Chronic (5) Hypothyroidism Current visit: Yes Status: Chronic (6) Weakness generalized Current visit: No Status: Acute - Narrative A/P Narrative: #1. Neurologic. Patient presents with altered mental status, and is status post a fall with head trauma. Initial head CT and neck CT did not show obvious fracture or bleeding. It is not clear if her increased confusion came before or after her fall. Altered mental status may also be due to acute urinary tract infection. -Admit for observation and neurologic checks. -PT and OT evaluation. Patient has worsening weakness and generalized decline, and may require placement, per family -History of dementia. Head CT is suggestive of Alzheimer's disease. It is not clear if she has been tried on medications in the past, such as Aricept or Namenda. We will try to contact her POA. 2. Infectious disease. Patient presents with signs and symptoms of urinary tract infection. -Urine and blood cultures pending. Cover with Rocephin for now. -Check postvoid residuals. 3. CODE STATUS: Advanced directive indicates full code. On her last admission it appears she had asked to be a DNR. 4. DVT prophylaxis: Subcu heparin. 5. Cardiac. History of atrial fibrillation. She appears to be in sinus rhythm today, with controlled rate. She was previously treated with warfarin, but that has been discontinued, presumably due to high fall risk. -Continue daily aspirin. -She takes Lasix 3 days a week, for uncertain reasons. We will continue that. 6. History of B12 deficiency. 7. History of asthma versus COPD. 8. Hypothyroidism. Continue levothyroxine. Next 9. Left humerus fracture. - her arm is kept in a brace, but this appears to be too snug, as the entire arm distal to the brace is quite swollen. I have loosened the brace today, and we will ask for PT and OT evaluations, and elevate the arm to see if we can help the swelling. Approximately 55 minutes was spent today, reviewing her case with the ER MD, reviewing her old records and current test results, interviewing and examining her, and writing orders.
[2017-03-23] MEDS: ALBUTEROL SULFATE 2.5 MG/3 ML NEBULIZER NEB SCH ×2 (18:57→20:41)
[2017-03-23] MEDS: 0.9 % SODIUM CHLORIDE 1,000 ML IV SCH (20:43)
[2017-03-23] MEDS: 0.9 % SODIUM CHLORIDE 10 ML SYRINGE IV SCH (20:44)
[2017-03-23] MEDS: HEPARIN 5,000 UNIT/ML VIAL SQ SCH (20:44)
[2017-03-24] MEDS: 0.9 % SODIUM CHLORIDE 10 ML SYRINGE IV SCH ×3 (05:32→21:14)
[2017-03-24 06:53] LABS: ALT/SGPT 9 U/l (0-40); Albumin 3.3 gm/dL (3.2-5.2); Albumin/Globulin Ratio 1.2 (1.0-2.3); Alkaline Phosphatase 107 U/L (39-117); Bilirubin,Direct < 0.2 mg/dL (0.0-0.3); Blood Urea Nitrogen 13 mg/dl (8-23); Gamma Glutamyl Transpeptidase 13 U/L (5-36); Magnesium 2.1 mg/dL (1.6-2.5); Uric Acid 4.1 mg/dL (2.5-8.0)
[2017-03-24 07:00] LABS: Basophils # (Auto) 0 K/mcL (0.0-0.3); Basophils % (Auto) 0.7 % (0.0-2.0); Eosinophils # (Auto) 0.3 K/mcL (0.0-0.7); Eosinophils % (Auto) 4.4 % (0.0-7.0); Granulocytes % (Auto) 65.8 % (38.0-78.0); Lymphocytes # (Auto) 1.1 K/mcL (1.5-4.8); Lymphocytes % (Auto) 18.8 % (15.5-49.0); Mean Cell Volume 90.5 fL (80.0-100.0); Mean Corpuscular HGB Conc 32.7 g/dL (31.0-36.0); Mean Corpuscular Hemoglobin 29.6 pg (26.0-34.0); Monocytes # (Auto) 0.6 K/mcL (0.1-0.9); Monocytes % (Auto) 10.3 % (1.0-12.0); Platelet Count 250 K/mcL (140-440); RBC 4.13 M/mcL (4.00-5.20); Red Cell Distribution Width 14.9 % (11.5-14.5)
[2017-03-24] MEDS: ALBUTEROL SULFATE 2.5 MG/3 ML NEBULIZER NEB SCH ×3 (08:14→20:13)
[2017-03-24] MEDS: cefTRIAXone 1 GM VIAL IV SCH (09:08)
[2017-03-24] MEDS: HEPARIN 5,000 UNIT/ML VIAL SQ SCH ×2 (09:08→21:12)
--- NOTE | 2017-03-24 10:21 | Internal Med Progress Note ---
Medical - PN: Subj Patient information: Note initiated : 03/24/17 at 10:21 am Service Date, if different from initiated Date: [] Patient: Nelda Martinez 86 y/o F admitted on 03/23/17 for Fall this morning. Neck pain. Chief Complaint: [] Interval history: March 23, 2017: History of present illness: Ms. Martinez is a 85 year old female with history of dementia, atrial fibrillation , transient, COPD, arthritis, history of heart failure, who presented to the ER with history of fall this morning. Per the ER MD, the patient was standing up this morning and just fell backwards, striking her head. At the time that I am seeing her, there is no family present. The patient is really too confused to give a history. She thinks her head might be sore, but is unsure of that. She appears to deny recent fever or chills, dizziness, earaches or sore throat or cough, chest pain or palpitations, shortness of breath, GI or symptoms, but appears to have significant dementia. ER evaluation: Head CT and neck CT showed no acute findings. Urinalysis is suggestive of UTI. The patient is weak and confused, and the family does not feel that they can handle her at home in this state. She is now admitted to observation for further monitoring, workup, treatment. March 24: -Today, the patient is a little more awake, but her daughter says she is really not back to her baseline mental status. Her daughter is in the room with her this morning, and describes progressive decline in the patient's functioning over the last couple of months. The daughter tells is declining, and she says she is no longer strong enough to care for her mother at home, and her current state. -The patient's postvoid residual was greater than 500 mL last night, so De La Paz catheter was placed. It is uncertain if she had urinary retention contributing to her UTI. We may need to add Flomax if this persists after removing the De La Paz. -Otherwise, the patient denies fever or chills, chest pain or shortness of breath, GI symptoms, but she does appear moderately confused and history is not reliable. She does report pain, which we think is regarding the fractured left humerus, but she is not always clear on this. Her left upper extremity is definitely left swollen and discolored today than yesterday, now that we have loosened the humerus brace. - Constitutional Vitals: Vital Signs Temp Pulse Resp BP Pulse Ox 98.6 F 80 12 131/73 94 03/24/17 07:27 03/24/17 08:25 03/24/17 08:25 03/24/17 07:27 03/24/17 08:27 Period Temp Pulse Resp BP Sys/Pires Pulse Ox Last 24 Hr 96.0 F-99.0 F 72-80 12-24 131-174/65-84 90-99 Intake and Output 03/23/17 03/24/17 03/24/17 21:59 05:59 13:59 Intake Total 240 / 240 Output Total 501 / 501 Balance 239 / 239 -501 / -501 Weight 183 lb Intake & Output: Intake & Output 03/23/17 03/24/17 03/24/17 21:59 05:59 13:59 Intake Total 240 / 240 Output Total 501 / 501 Balance 239 / 239 -501 / -501 Weight 183 lb Intake: Oral 240 / 240 Output: Urine Catheter Amount 500 / 500 # of times incontinent of urine Other: Meal Dinner Percent of Meal Consumed 10% Feeding Ability Independent On exam, the patient is awake and alert, but does not seem to answer questions appropriately. Neck is supple without lymphadenopathy or JVD. Cardiac exam shows regular rate and rhythm. Lungs have rather coarse breath sounds with scattered wheezes. Abdomen is soft and nontender. Extremities: Lower extremities do not have significant edema. Left arm is still rather puffy, but has better color and decreased swelling compared to yesterday. The left upper arm braces on only loosely today and the arm is elevated on a pillow. Neurologic: The patient is disoriented. Her speech is quite thick, and the daughter says this is her baseline. She does not grossly have any focal findings. Medical - PN: Obj Da - Labs CBC & Chem 7: 03/24/17 04:16 03/24/17 04:16 Labs: Abnormal Lab Results 03/24/17 03/24/17 03/23/17 04:16 04:16 11:37 RDW 14.9 H Lymph % (Auto) Lymph # (Auto) 1.1 L Carbon Dioxide 20 L Urine Occult Blood 0.2 A Ur Leukocyte Esterase 500 A Urine RBC 5 H Urine WBC 32 H Urine Bacteria Mod A 03/23/17 10:33 RDW 15.2 H Lymph % (Auto) 14.4 L Lymph # (Auto) 1.1 L Carbon Dioxide Urine Occult Blood Ur Leukocyte Esterase Urine RBC Urine WBC Urine Bacteria March 23: Urine culture: Is growing gram-negative bacilli. ID to follow. CBC: White blood cell count 7900, hemoglobin 12, hematocrit 36, platelets 263, 000. Chemistry panel: Is essentially normal. Urinalysis: Shows 500 leukocyte esterase, 5 red blood cells, 32 white blood cells, moderate bacteria. Left arm x-ray: IMPRESSION: Mildly comminuted, moderately displaced and angulated fracture of the mid humeral diaphysis shows unchanged alignment from the x-ray month ago. Small amount of new bridging callus is appreciated. Dry head CT: IMPRESSION: Moderate atrophy with asymmetric atrophy of the temporal lobes suggesting the possibility of Alzheimer's disease - please correlate with other clinical history. 2.5 arachnoid cyst left middle cranial fossa - stable. No intracerebral hemorrhage or posttraumatic change. CT cervical spine: IMPRESSION: No fracture, subluxation or other acute posttraumatic change. Multilevel degenerative change - as described Meds: Medications Acetaminophen (Tylenol) 650 mg PO Q6HP PRN PRN Reason: PAIN/FEVER > 101 Hydrocodone Bitart/Acetaminophen ([place] 5/325mg) 1 tab PO Q4HP PRN PRN Reason: PAIN LEVEL 3-6 Albuterol Sulfate (Ventolin) 2.5 mg NEB TID [facility] Last Admin: 03/24/17 08:14 Dose: 2.5 mg Calcium Carbonate/Glycine (Tums) 1,000 mg CHEWED Q4HP PRN PRN Reason: Dyspepsia Ceftriaxone Sodium (Rocephin) 1 gm IV DAILY [facility] Last Admin: 03/24/17 09:08 Dose: 1 gm Docusate Sodium (Colace) 100 mg PO BID PRN PRN Reason: Constipation Heparin Sodium (Porcine) (Heparin) 5,000 unit SQ Q12 [facility] Last Admin: 03/24/17 09:08 Dose: 5,000 unit Sodium Chloride (Sodium Chloride 0.9%) 1,000 mls @ 50 mls/hr IV .Q20H [facility] Last Admin: 03/23/17 20:43 Dose: 50 mls/hr Magnesium Hydroxide (Milk Of Magnesia) 30 ml PO DAILYP PRN PRN Reason: Constipation Naloxone HCl (Narcan) 0.1 mg IV Q2MIN PRN PRN Reason: Opiate Reversal Ondansetron HCl (Zofran) 4 mg IV Q4HP PRN PRN Reason: Nausea And Vomiting Sodium Chloride (Saline Flush) 10 ml IV Q8 [facility] Last Admin: 03/24/17 05:32 Dose: Not Given Medical - PN: A/P - Time Spent With Patient Total time spent is greater than 50% in coordination of care (as documented) at patient's floor/unit and/or counseling patient: 25 - 35 minutes (1) Altered mental status Status: Acute Current Visit: Yes (2) Fall from ground level Status: Acute Current Visit: Yes (3) Head injury due to trauma Status: Acute Current Visit: Yes (4) History of atrial fibrillation Status: Chronic Current Visit: Yes (5) Hypothyroidism Status: Chronic Current Visit: Yes (6) Weakness generalized Status: Acute Current Visit: No - Narrative A/P Narrative: #1. Neurologic. Patient presents with altered mental status, and is status post a fall with head trauma. Initial head CT and neck CT did not show obvious fracture or bleeding. It is not clear if her increased confusion came before or after her fall. Altered mental status may also be due to acute urinary tract infection. -Admitted for observation and neurologic checks. She seems to be somewhat improved today. -PT and OT evaluation. Patient has worsening weakness and generalized decline, and may require placement, per family -History of dementia. Head CT is suggestive of Alzheimer's disease. It is not clear if she has been tried on medications in the past, such as Aricept or Namenda. - Her daughter says she has never been tried on Aricept or Namenda. At this late stage I do not know that that would add anything, but certainly should be considered. 2. Infectious disease. Patient presents with signs and symptoms of urinary tract infection. -Urine culture is growing a gram-negative alesia, with ID pending, and blood cultures pending. Cover with Rocephin for now. 3. CODE STATUS: Advanced directive indicates full code. On her last admission it appears she had asked to be a DNR. 4. DVT prophylaxis: Subcu heparin. 5. Cardiac. History of atrial fibrillation. She appears to be in sinus rhythm today, with controlled rate. She was previously treated with warfarin, but that has been discontinued, presumably due to high fall risk. -Continue daily aspirin. -She takes Lasix 3 days a week, for uncertain reasons. We will continue that. 6. History of B12 deficiency. 7. History of asthma versus COPD. 8. Hypothyroidism. Continue levothyroxine. 9. Orthopedic. Left humerus fracture. - her arm is kept in a brace, but this appears to be too snug, as the entire arm distal to the brace is quite swollen. I have loosened the brace today, and we will ask for PT and OT evaluations, and elevate the arm to see if we can help the swelling. -OT did evaluate her today, and suggested doing some icing for swelling as well as arm elevation. They will work with her on mobility and transferring as well. #10. . Patient had a high postvoid residual, so catheter was placed. At some point she will need a voiding trial. We might want to consider adding Flomax to facilitate bladder emptying. Approximately 30 minutes was spent today, reviewing the patient's test results, interviewing and examining her, reviewing plan of care with her daughter, and writing orders. Medical - PN: Qual - VTE Deep Vein Thrombosis/Pulmonary Embolism Present on Admission: No
[2017-03-24] MEDS: HYDROcodone/APAP 5/325MG TABLET PO PRN (13:08)
[2017-03-24] MEDS: 0.9 % SODIUM CHLORIDE 1,000 ML IV SCH (16:03)
[2017-03-25] MEDS: HYDROcodone/APAP 5/325MG TABLET PO PRN (01:07)
[2017-03-25] MEDS: 0.9 % SODIUM CHLORIDE 10 ML SYRINGE IV SCH (06:30)
[2017-03-25 07:23] LABS: Basophils # (Auto) 0 K/mcL (0.0-0.3); Basophils % (Auto) 0.5 % (0.0-2.0); Eosinophils # (Auto) 0.2 K/mcL (0.0-0.7); Granulocytes % (Auto) 67.1 % (38.0-78.0); Lymphocytes # (Auto) 1.2 K/mcL (1.5-4.8); Lymphocytes % (Auto) 19.1 % (15.5-49.0); Mean Corpuscular HGB Conc 33.7 g/dL (31.0-36.0); Mean Corpuscular Hemoglobin 30.3 pg (26.0-34.0); Monocytes # (Auto) 0.6 K/mcL (0.1-0.9); Monocytes % (Auto) 9.3 % (1.0-12.0); Platelet Count 243 K/mcL (140-440); Red Cell Distribution Width 15.7 % (11.5-14.5)
[2017-03-25 07:59] LABS: ALT/SGPT 9 U/l (0-40); Albumin 3.3 gm/dL (3.2-5.2); Albumin/Globulin Ratio 1.2 (1.0-2.3); Alkaline Phosphatase 106 U/L (39-117); Bilirubin,Direct < 0.2 mg/dL (0.0-0.3); Blood Urea Nitrogen 11 mg/dl (8-23); Gamma Glutamyl Transpeptidase 15 U/L (5-36); Magnesium 2.1 mg/dL (1.6-2.5); Uric Acid 3.7 mg/dL (2.5-8.0)
[2017-03-25] MEDS: ALBUTEROL SULFATE 2.5 MG/3 ML NEBULIZER NEB SCH (08:13)
[2017-03-25] MEDS: cefTRIAXone 1 GM VIAL IV SCH (09:04)
[2017-03-25] MEDS: HEPARIN 5,000 UNIT/ML VIAL SQ SCH (09:10)
--- NOTE | 2017-03-25 10:25 | Discharge Summary ---
Medical - DS: Prov Patient information: Note initiated : 03/25/17 at 10:16 am Service Date, if different from initiated Date: [] Patient: Nelda Martinez a 86 y/o F admitted on 03/23/17 for Fall this AM, Neck Pain/UTI, Lt Humerus Fracture. Chief Complaint: [] Date of admission: 03/23/17 14:06 Discharge date: 03/25/17 Primary care physician: Darin Lazo Admitting clinician: Yamilex Shine Consults: 03/23/17 12:23 Consult to Physician [CONS] Stat Comment: Consulting Provider: Yamilex Shine Reason For Exam: Physician to Consult Attending physician on discharge: Yamilex Shine Medical - DS: Meds - Discharge Medications Prescriptions: Cephalexin [Keflex] 500 mg PO BID #20 cap HYDROcodone/APAP 5/325MG [[place] 5/325Mg] 1 tab PO Q4HP PRN #30 tab PRN Reason: Pain Level > 6 Active and Home Medications: Home Medications Furosemide [Lasix] 20 mg PO MOWEFR@0900 10/29/16 [History Confirmed 03/25/17 Last Taken 03/22/17 09:00 20 MG.] Levothyroxine [Synthroid] 125 mcg PO QAMAC 10/29/16 [History Confirmed 03/25/17 Last Taken Unknown] Acetaminophen [Tylenol] 650 mg PO Q6HP PRN tablet 10/31/16 [Rx Confirmed Last Taken 03/22/17 21:00 650 MG.] Folic Acid 1 mg PO DAILY tablet 10/31/16 [Rx Confirmed 03/25/17 Last Taken 09:00 1 MG.] Ipratropium/Albuterol [Duoneb] 3 ml NEB Q6HRT PRN 10/31/16 [Rx Confirmed Last Taken 03/24/17 08:00 3 ML.] Magnesium Hydroxide [Milk of Magnesia] 30 ml PO DAILYP PRN 10/31/16 [Rx Confirmed 03/25/17 Last Taken 03/22/17 09:00 125 MCG.] Multivit,Ther Iron,Ca,FA & Min [Multivitamin W/Minerals] 1 tab PO DAILY tablet 10/31/16 [Rx Confirmed 03/25/17 Last Taken 03/22/17 09:00 1 TAB] Aspirin [Lite Coat Aspirin] 325 mg PO DAILY 12/21/16 [History Confirmed Last Taken 03/22/17 325 MG.] Cephalexin [Keflex] 500 mg PO BID #20 cap 03/23/17 [Rx Last Taken Unknown] Cyanocobalamin [Vitamin B12] 1,000 mcg IM QMONTH 03/25/17 [History Confirmed Last Taken 01/11/17 1000 MCG] Medical - DS: Hosp Hospital course: Mr. Martinez is a 86 year old F March 23, 2017: History of present illness: Ms. Martinez is a 85 year old female with history of dementia, atrial fibrillation , transient, COPD, arthritis, history of heart failure, who presented to the ER with history of fall this morning. Per the ER MD, the patient was standing up this morning and just fell backwards, striking her head. At the time that I am seeing her, there is no family present. The patient is really too confused to give a history. She thinks her head might be sore, but is unsure of that. She appears to deny recent fever or chills, dizziness, earaches or sore throat or cough, chest pain or palpitations, shortness of breath, GI or symptoms, but appears to have significant dementia. ER evaluation: Head CT and neck CT showed no acute findings. Urinalysis is suggestive of UTI. The patient is weak and confused, and the family does not feel that they can handle her at home in this state. She is now admitted to observation for further monitoring, workup, treatment. March 24: -Today, the patient is a little more awake, but her daughter says she is really not back to her baseline mental status. Her daughter is in the room with her this morning, and describes progressive decline in the patient's functioning over the last couple of months. The daughter tells is declining, and she says she is no longer strong enough to care for her mother at home, and her current state. -The patient's postvoid residual was greater than 500 mL last night, so De La Paz catheter was placed. It is uncertain if she had urinary retention contributing to her UTI. We may need to add Flomax if this persists after removing the De La Paz. -Otherwise, the patient denies fever or chills, chest pain or shortness of breath, GI symptoms, but she does appear moderately confused and history is not reliable. She does report pain, which we think is regarding the fractured left humerus, but she is not always clear on this. Her left upper extremity is definitely left swollen and discolored today than yesterday, now that we have loosened the humerus brace. March 25: Hospital course: -This patient was admitted with worsening mental status and falls, and diagnosed with a UTI. Urine is growing Klebsiella, sensitive to most cephalosporins. She is afebrile. However, she did have difficulty urinating, and post void residual was greater than 500 mL, so De La Paz catheter was placed. She has no particular complaints today, although she said "out" once when I touched her belly, but then did not thereafter. She seems to deny chest pain or shortness of breath, other GI or symptoms, but because of her dementia her history is quite unreliable. -Increased confusion and weakness, with increasing falls. She will be transferred to rehab today, to work on strengthening. The daughter is uncertain if she will be able to take her back home, due to the daughter's health, so we need to keep working on a long-term plan for a safe living situation for this patient. On exam, the patient is sleeping, but once awakened is fairly alert, but does not seem to answer questions appropriately. Neck is supple without lymphadenopathy or JVD. Cardiac exam shows regular rate and rhythm. Lungs are essentially clear to auscultation. It is a little difficult to get her to fully cooperate with deep breathing. Abdomen is soft and nontender. Extremities: Lower extremities do not have significant edema. Left arm is still rather puffy, but has better color and decreased swelling compared to [place].. The left upper arm braces on only loosely today and the arm is elevated on a pillow. Neurologic: The patient is disoriented. Her speech is quite thick, and the daughter says this is her baseline. She does not grossly have any focal findings. A/P Narrative: #1. Neurologic. Patient presents with altered mental status, and is status post a fall with head trauma. Initial head CT and neck CT did not show obvious fracture or bleeding. It is not clear if her increased confusion came before or after her fall. Altered mental status may also be due to acute urinary tract infection. -Admitted for observation and neurologic checks. She seems to be somewhat improved today. Her daughter does not seem to think that she is back at baseline yet. -Continue PT and OT Patient has worsening weakness and generalized decline, and may require placement, per family. -History of dementia. Head CT is suggestive of Alzheimer's disease. It is not clear if she has been tried on medications in the past, such as Aricept or Namenda. - Her daughter says she has never been tried on Aricept or Namenda. At this late stage I do not know that that would add anything, but certainly should be considered. 2. Infectious disease. Patient presents with signs and symptoms of urinary tract infection. -Urine culture is growing Klebsiella, sensitive to cephalosporins. Oral Keflex ordered.. She is also had 2 days of IV Rocephin. 3. CODE STATUS: . On her last admission it appears she had asked to be a DNR. The patient's daughter confirm that she should have a DNR CODE STATUS. 4. DVT prophylaxis: Subcu heparin. 5. Cardiac. History of atrial fibrillation. She appears to be in sinus rhythm today, with controlled rate. She was previously treated with warfarin, but that has been discontinued, presumably due to high fall risk. -Continue daily aspirin. -She takes Lasix 3 days a week, for uncertain reasons. We will continue that. 6. History of B12 deficiency. 7. History of asthma versus COPD. 8. Hypothyroidism. Continue levothyroxine. 9. Orthopedic. Left humerus fracture. - her arm is kept in a brace, but this appears to be too snug, as the entire arm distal to the brace is quite swollen. I have loosened the brace today, and we will ask for PT and OT evaluations, and elevate the arm to see if we can help the swelling. -OT did evaluate her , and suggested doing some icing for swelling as well as arm elevation. They will work with her on mobility and transferring as well. #10. . Patient had a high postvoid residual, so catheter was placed. At some point she will need a voiding trial. We might want to consider adding Flomax to facilitate bladder emptying. Discharge diagnosis: Worsened mental status. Urinary tract infection. Dementia. Humerus fx - Time Spent with Patient Total time spent providing and/or coordinating discharge services: Greater than 30 minutes Medical - DS: Exam - Constitutional Vitals: Vital Signs Temp Pulse Pulse Resp BP Pulse Ox 03/25/17 08:37 98 03/25/17 08:36 76 16 03/25/17 07:49 97.3 F 18 159/76 93 03/25/17 04:00 99.1 F H 74 26 H 162/77 93 03/24/17 23:59 98.6 F 91 H 28 H 152/72 91 03/24/17 20:14 88 22 92 03/24/17 19:23 98.7 F 90 20 155/75 92 03/24/17 16:00 97.9 F 22 122/69 94 03/24/17 15:34 81 20 03/24/17 10:59 98.2 F 20 134/70 95 Intake and Output 03/24/17 03/25/17 03/25/17 21:59 05:59 13:59 Intake Total 1117 / 1117 50 / 50 Output Total 650 / 650 1025 / 1025 Balance 467 / 467 -975 / -975 Intake: IV 967 / 967 Sodium Chloride 0.9% 1,000 ml @ 967 / 967 50 mls/hr IV .Q20H [facility] Rx#: [id number] Oral 150 / 150 50 / 50 Output: Urine Catheter Amount 650 / 650 1025 / 1025 Other: Weight 184 lb Medical - DS: Data Labs on day of discharge: Labs from last 24 hours 03/25/17 03/25/17 06:21 06:21 WBC 6.2 RBC 3.90 L Hgb 11.8 L Hct 35.1 L MCV 90.0 MCH 30.3 MCHC 33.7 RDW 15.7 H Plt Count 243 MPV 8.5 Gran % 67.1 Lymph % (Auto) 19.1 [place] % (Auto) 9.3 Eos % (Auto) 4.0 Baso % (Auto) 0.5 Gran # 4.1 Lymph # (Auto) 1.2 L [place] # (Auto) 0.6 Eos # (Auto) 0.2 Baso # (Auto) 0 Sodium 138 Potassium 3.9 Chloride 102 Carbon Dioxide 22 Anion Gap 14.0 BUN 11 Creatinine 0.7 GFR Calculation 78 Glucose 103 Uric Acid 3.7 Calcium 8.7 Phosphorus 3.8 Magnesium 2.1 Total Bilirubin 0.3 Direct Bilirubin < 0.2 GGT 15 AST 13 ALT 9 Alkaline Phosphatase 106 Lactate Dehydrogenase 152 Total Protein 6.1 Albumin 3.3 Globulin 2.8 Albumin/Globulin Ratio 1.2 Triglycerides 91 Preliminary micro results at discharge 03/23/17 14:51 Blood Culture - Preliminary Blood March 23: Urine culture: Is growing Klebsiella, sensitive to Augmentin, aztreonam, cefazolin, cefepime, ceftriaxone, ciprofloxacin, tetracycline, Zosyn. Resistant to ampicillin, cefuroxime, nitrofurantoin, Bactrim Cultures: Negative so far. CBC: White blood cell count 7900, hemoglobin 12, hematocrit 36, platelets 263, 000. Chemistry panel: Is essentially normal. Urinalysis: Shows 500 leukocyte esterase, 5 red blood cells, 32 white blood cells, moderate bacteria. Left arm x-ray: IMPRESSION: Mildly comminuted, moderately displaced and angulated fracture of the mid humeral diaphysis shows unchanged alignment from the x-ray month ago. Small amount of new bridging callus is appreciated. Dry head CT: IMPRESSION: Moderate atrophy with asymmetric atrophy of the temporal lobes suggesting the possibility of Alzheimer's disease - please correlate with other clinical history. 2.5 arachnoid cyst left middle cranial fossa - stable. No intracerebral hemorrhage or posttraumatic change. CT cervical spine: IMPRESSION: No fracture, subluxation or other acute posttraumatic change. Multilevel degenerative change - as described Medical - DS: A/P - Patient/Caregiver Discharge Instructions Activity: as per physical therapy Diet: Low Sodium (2gm) Prescriptions: Cephalexin [Keflex] 500 mg PO BID #20 cap HYDROcodone/APAP 5/325MG [[place] 5/325Mg] 1 tab PO Q4HP PRN #30 tab PRN Reason: Pain Level > 6 Other Amb Orders: Aspiration Precautions Location: Determined By Patient Fall Risk Location: Determined By Patient OT Discharge Order Location: Determined By Patient Physical Therapy at Discharge - General Location: Determined By Patient - Problem Maintenance (1) Altered mental status Status: Acute (2) Fall from ground level Status: Acute (3) Head injury due to trauma Status: Acute (4) History of atrial fibrillation Status: Chronic (5) Hypothyroidism Status: Chronic (6) Weakness generalized Status: Acute - Follow up Plan Follow up with: Darin Lazo MD [Primary Care Provider] - Disposition: Xf SNF Prognosis: Fair Rehab Potential: Fair I certify that the patient requires SNF services: Yes Overall status at discharge: patient is progressing back to baseline Medical - DS: Qual - VTE Deep Vein Thrombosis/Pulmonary Embolism Present on Admission: No
[2017-03-25] MEDS ORDERED: CYANOCOBALAMIN 1,000 MCG/ML VIAL IM ONE (12:30)
[2017-03-25] MEDS: 0.9 % SODIUM CHLORIDE 1,000 ML IV SCH (12:34)
== END 2017-03-25 13:05 ==
LOC: MEDSUR 07:40 → ED 07:40 → MEDSUR 14:10
PROVIDERS: ADMIT Internal Medicine; ATTEND Internal Medicine